=== PATIENT | male | born 1955 | race Caucasian/White ===

== ENCOUNTER 2019-05-18 11:17 | Inpatient (IN) ==
[2019-05-18 12:11] LABS: Hematocrit 30.3 % (42.0-52.0); Hemoglobin 10.9 gm/dL (13.5-18.0); Mean Cell Volume 96.8 fl (78-100); Mean Corpuscular Hemoglobin 34.8 pg (27-31); Mean Platelet Volume 9.4 fl (8-11.3); Neutrophil # 6.4 K/mm3 (1.3-6.0); Neutrophil % 74.2 % (42-75.0); Platelet Count 190 K/mm3 (150-450); Red Blood Count 3.13 M/mm3 (4.7-6.0); Red Cell Distribution Width 13.6 % (11.5-14.0); White Blood Count 8.6 K/mm3 (4.0-10.5)
[2019-05-18 12:50] LABS: Troponin I Less than 0.017 ng/mL (0.00-0.10)
[2019-05-18 12:52] LABS: ALT 31 U/L (19-67); AST 75 U/L (0-48); Albumin * 2.3 gm/dl (3.4-5.0); Alkaline Phosphatase * 121 U/L (50-170); Anion Gap 7.2 mmol/L (6.8-13.8); BNP * 365 pg/mL (5-175); BUN/Creatinine Ratio 10.9 (9.0-21.6); Blood Urea Nitrogen 7 mg/dL (6-23); Ca. Corrected For Albumin 9.4 mg/dL (8.4-10.2); Calcium * 8.4 mg/dL (7.9-10.9); Carbon Dioxide 32.3 mmol/L (24-32.6); Chloride 84 mmol/L (97-106); Glucose * 102 mg/dL (70-110); Potassium 3.5 mmol/L (3.4-4.6); Total Protein 6.5 gm/dL (6.2-8.2)
[2019-05-18 13:04] LABS: Sodium 120 mmol/L (132-142)
[2019-05-18] MEDS ORDERED: NORMAL SALINE 1,000 ML IV ONE (13:31)
--- NOTE | 2019-05-18 13:43 | ERNOTE ---
Medical Problem HPI - Narrative Date of Service: 05/18/19 - General Chief Complaint: General Assessment Time Seen by Provider: 05/18/19 11:43 Source: patient, family, RN notes reviewed Exam Limitations: other - Poor historian - Immun/Allergies/Home Medications Immunizations: IMMUNIZATION HX Immunizations Up to Date No History of Influenza Vaccine No Hx Pneumococcal Vaccination No Allergies/Adverse Reactions: Allergies No Known Allergies Allergy (Verified 05/18/19 11:27) Home Medications: HOME MEDICATIONS Carvedilol [Coreg] 12.5 mg PO BID 05/18/19 [Last Taken Unknown] Furosemide [Lasix] 80 mg PO DAILY PRN 05/18/19 [Last Taken Unknown] Potassium Chloride [Klor-Con M20] 20 meq PO DAILY 05/18/19 [Last Taken Unknown] - History of Present History Narrative: Erik is a 64 year old male brought to the ED from home by ambulance. He was transported in a wheelchair because he could not tolerate lying down. He had somehow gotten himself out of his chair and could not get up. He was on all fours, leaning over his chair when EMS arrived. He attributes this to fluid retention, which has been going on for several months. He reports seeing his PCP approximately a month ago. 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 His sister spoke with nursing staff and asserted that his mother actually has to take care of him. He has a history of alcohol abuse but stopped drinking some time ago. He is a smoker and reports that he currently only smokes 5 or 6 cigarettes a day. He denies any pain other than in the bottoms of his feet. Review of Systems - Review of Systems Constitutional: Present: fatigue, malaise, decreased activity level. Absent: recent illness EYE: Present: no symptoms reported ENT: Absent: nose congestion, sore throat Respiratory: Present: shortness of breath, cough, orthopnea. Absent: wheezing Cardiology: Present: edema. Absent: chest pain, syncope Gastrointestinal/Abdominal: Absent: nausea, vomiting, diarrhea, abdominal pain, eating less, drinking less Genitourinary: Present: decreased urinary output. Absent: dysuria Musculoskeletal: Absent: back pain, joint pain Skin: Absent: lesions, lumps, change in color Neurological: Absent: headache, dizziness/light-headedness Endocrine: Present: no symptoms reported Hematologic/Lymphatic: Absent: easy bruising, easy bleeding Psych: Present: no symptoms reported Medical History (Last Reviewed 05/18/19 @ 13:38 by Viv Arreola NP) CHF (congestive heart failure) HTN (hypertension) Surgical History: Surgical History (Last Reviewed 05/18/19 @ 13:38 by Viv Arreola NP) History of orthopedic surgery Hx of tonsillectomy Social History: (Last Reviewed 05/18/19 @ 13:38 by Viv Arreola NP) Tobacco: Smoking Status: Current every day smoker tobacco type: cigarettes Smoking cigarettes per day: 5 Alcohol: alcohol intake: former Substance Use: substance use type: does not use Physical Exam - Physical Exam General Appearance: Present: alert, no apparent distress, obese Head Exam: Present: normal inspection Eye Exam: PERRL: bilateral, EOMI: bilateral, Scleral icterus: bilateral - mild Neck: Present: normal inspection, nontender, supple Respiratory: Present: no respiratory distress, chest nontender, rhonchi - scattered throughout, other - dyspnea with minimal exertion Cardiovascular/Chest: Present: regular rate, rhythm. Absent: normal peripheral pulses Peripheral Pulses: N=norm/S=strong/W=weak/B=bound/A=absent: Dorsalis-pedis (R): Weak, Dorsalis-pedis (L): Weak Gastrointestinal/Abdominal: Present: nontender, soft, distended - morbidly obese Extremity Exam: Present: normal range of motion, pedal edema, extremity edema - bilateral lower legs and feet. Absent: calf tenderness Neurological Exam: Present: alert, oriented, normal mood/affect, no motor/s ensory deficits Skin Exam: Present: warm/dry, other - mild erythema and scaling to lower legs Progress - Results and Orders Patient's Lab Results:: I have reviewed the patient's lab results. - Vital Signs Patient's Vital Signs:: I have reviewed the patient's vital signs. Vital Signs: Vital Signs 05/18/19 11:17 05/18/19 11:25 05/18/19 12:24 Temperature 35.7 C L Pulse Rate 64 70 64 Respiratory Rate 14 13 14 Blood Pressure 140/58 156/96 H O2 Sat by Pulse Oximetry 100 94 96 05/18/19 13:30 Temperature 36.5 C Pulse Rate 91 Respiratory Rate 12 Blood Pressure 116/48 O2 Sat by Pulse Oximetry 99 - EKG EKG #1 EKG: NSR EKG read: Reviewed by me - X-Ray X-Ray #2 X-Ray: chest Interpretation: Reviewed by me X-ray Comments: Technique: A single portable upright AP view of the chest were obtained. Findings: The cardiac silhouette is enlarged in size. The mediastinum and hilum are with in normal limits. The lung hart are clear. I do not see evidence for an infiltrate, effusion or pulmonary edema. IMPRESSION: 1. ENLARGED CARDIAC SILHOUETTE. 2. NO ACUTE CARDIOPULMONARY PROCESS. Electronically signed by Anthony Brown M.D.. - Progress/Reassessment Chief Complaint: General Assessment Progress:: Unchanged Plan - Plan Plan: Dr. Flores was contacted. The patient will be admitted to Med/Surg on telemetry for correction of his sodium. IV NS as 125 ml/hr was ordered. Departure Clinical Impression: Acute hyponatremia - Departure Disposition: Still a patient Condition: Stable Referrals: Katheryn Bell MD [Primary Care Provider] -
[2019-05-18] MEDS: FUROSEMIDE 10 MG/ML VIAL IV SCH ×2 (16:18→17:14)
[2019-05-18] MEDS ORDERED: FLU VACC QS2019-20(6MOS UP)/PF 60 MCG/0.5 ML SYRINGE IM ONE (17:00)
[2019-05-18] MEDS ORDERED: POTASSIUM BICARBONATE/CIT AC 25 MEQ TABLET.EFF PO ONE (17:36)
[2019-05-18] MEDS: ENOXAPARIN SODIUM 40 MG/0.4 ML SYRG SC SCH (17:47)
--- NOTE | 2019-05-18 17:59 | HP ---
Chief Complaint - Chief Complaint Date of Service: 05/18/19 Time of Service: 14:49 Chief Complaint: Weakness x 5 days History of Present Illness: 64-year-old male with a past medical history of hypertension and congestive heart failure presents with complaints of weakness for the past 5 days. He had a fall today and was unable to get himself up. EMS was called. In the emergency department he was found to have hyponatremia with a sodium of 120, BNP of 365, albumin of 2.3. He was admitted for management of hyponatremia. It is unclear how long the sodium has been low. Medical History (Last Reviewed 05/18/19 @ 14:28 by Marino Solo RN) CHF (congestive heart failure) HTN (hypertension) Surgical History: Surgical History (Last Reviewed 05/18/19 @ 14:28 by Marino Solo RN) History of orthopedic surgery Hx of tonsillectomy Family History: Family History (Last Updated 05/18/19 @ 17:58 by Isha Flores MD) Other Family history non-contributory Social History: (Last Reviewed 05/18/19 @ 13:38 by Viv Arreola NP) Tobacco: Smoking Status: Current every day smoker tobacco type: cigarettes Smoking cigarettes per day: 5 Alcohol: alcohol intake: former Substance Use: substance use type: does not use Review Of Systems (GEN) - Review of Systems Generalized/Overall Review: Present: Weakness. Absent: Chills, Fever Respiratory: Present: Shortness of Breath. Absent: Cough Cardiac: Present: Edema. Absent: Chest Pain Abdominal: Absent: Abdominal Pain Musculoskeletal: Absent: Back Pain Misc: All systems neg except as marked Immunizations: IMMUNIZATION HX Immunizations Up to Date No History of Influenza Vaccine No Hx Pneumococcal Vaccination No Allergies/Adverse Reactions: Allergies Allergy/AdvReac Type Severity Reaction Status Date / Time No Known Allergies Allergy Verified 05/18/19 11:27 Home Medications: HOME MEDICATIONS Carvedilol [Coreg] 12.5 mg PO BID 05/18/19 [Last Taken Unknown] Furosemide [Lasix] 80 mg PO BID 05/18/19 [Last Taken Unknown] Potassium Chloride [Klor-Con M20] 20 meq PO DAILY 05/18/19 [Last Taken Unknown] Exam - Exam Vital Signs: Vital Signs - Last Taken Temp 36.5 C 05/18/19 14:31 Pulse 64 05/18/19 16:18 Resp 24 H 05/18/19 14:31 BP 118/66 05/18/19 16:18 Pulse Ox 95 05/18/19 14:31 Constitutional: Present: Alert, Cooperative, Well developed, Obese ENT Exam: Present: hearing grossly normal, moist mucous membranes Eye Exam: bilateral eye: normal inspection Neck: Present: non-tender, supple. Absent: lymphadenopathy (R), lymphadenopathy (L) Back Exam: Present: normal inspection, no CVA tenderness, no vertebral tenderness. Absent: CVA tenderness (R), CVA tenderness (L) Respiratory: Present: lungs clear, no respiratory distress, no accessory muscle use, No wheezing. Absent: crackles Cardiovascular/Chest: Present: normal peripheral pulses, regular rate, rhythm, no murmur, edema - 2+ pitting, bilateral lower extremities up to the abdomen and low back Peripheral Pulses: dorsalis-pedis (R): 1+, dorsalis-pedis (L): 1+ Abdomen: Present: Normal bowel sounds, nontender, distended, hernia - Periumbilical. Absent: guarding Extremity: Present: lower extremity edema - Plus bilateral pitting Skin Exam: Present: normal color, warm/dry Neurologic: Present: alert, normal mood/affect Appearance: Present: appropriate appearance, appropriate insight Eye contact: Present: cooperative, good eye contact Thoughts: Present: normal thought pattern Diagnostic Studies: Abnormal Lab Results 05/18/19 05/18/19 05/18/19 Range/Units 12:06 12:06 15:55 RBC 3.13 L (4.7-6.0) M/mm3 Hgb 10.9 L (13.5-18.0) gm/dL Hct 30.3 L (42.0-52.0) % MCH 34.8 H (27-31) pg Immature Gran % (Auto) 0.50 H (0.001-0.429) % Immature Gran # (Auto) 0.04 H (0.000-0.0310) K/mm3 Lymphocytes % 12.4 L (20-51) % Monocytes % 11.3 H (0.0-9) % Neutrophils # 6.4 H (1.3-6.0) K/mm3 Lymphocytes # 1.06 L (1.5-3.5) k/mm3 Sodium 120 L 118 L* (132-142) mmol/L Plasma Sodium 120 L (130-142) mmol/L Chloride 84 L (97-106) mmol/L Est GFR (Non-Af Amer) 134 H D (60-130) mL/min Total Bilirubin 2.0 H (0.0-1.1) mg/dL AST 75 H (0-48) U/L B-Natriuretic Peptide 365 H (5-175) pg/mL Albumin 2.3 L (3.4-5.0) gm/dl Laboratory Results WBC 8.6 K/mm3 (4.0-10.5) 05/18/19 12:06 RBC 3.13 M/mm3 (4.7-6.0) L 05/18/19 12:06 Hgb 10.9 gm/dL (13.5-18.0) L 05/18/19 12:06 Hct 30.3 % (42.0-52.0) L 05/18/19 12:06 MCV 96.8 fl (78-100) 05/18/19 12:06 MCH 34.8 pg (27-31) H 05/18/19 12:06 MCHC 36.0 g/dl (32-36) 05/18/19 12:06 RDW 13.6 % (11.5-14.0) 05/18/19 12:06 Plt Count 190 K/mm3 (150-450) 05/18/19 12:06 MPV 9.4 fl (8-11.3) 05/18/19 12:06 Immature Gran % (Auto) 0.50 % (0.001-0.429) H 05/18/19 12:06 Immature Gran # (Auto) 0.04 K/mm3 (0.000-0.0310) H 05/18/19 12:06 Neutrophils % 74.2 % (42-75.0) 05/18/19 12:06 Lymphocytes % 12.4 % (20-51) L 05/18/19 12:06 Monocytes % 11.3 % (0.0-9) H 05/18/19 12:06 Eosinophils % 1.2 % (0.0-3.0) 05/18/19 12:06 Basophils % 0.4 % (0.0-1.0) 05/18/19 12:06 Nucleated RBC % 0.0 k/mm3 (0-1) 05/18/19 12:06 Neutrophils # 6.4 K/mm3 (1.3-6.0) H 05/18/19 12:06 Lymphocytes # 1.06 k/mm3 (1.5-3.5) L 05/18/19 12:06 Monocytes # 1.0 k/mm3 (0.0-1.0) 05/18/19 12:06 Eosinophils # 0.1 k/mm3 (0.0-0.7) 05/18/19 12:06 Absolute Basophils 0.0 k/mm3 (0.0-0.1) 05/18/19 12:06 Sodium 118 mmol/L (132-142) L* 05/18/19 15:55 Plasma Sodium 120 mmol/L (130-142) L 05/18/19 12:06 Potassium 3.5 mmol/L (3.4-4.6) 05/18/19 12:06 Chloride 84 mmol/L (97-106) L 05/18/19 12:06 Carbon Dioxide 32.3 mmol/L (24-32.6) 05/18/19 12:06 Anion Gap 7.2 mmol/L (6.8-13.8) 05/18/19 12:06 BUN 7 mg/dL (6-23) 05/18/19 12:06 Creatinine 0.64 mg/dL (0.4-1.4) 05/18/19 12:06 Est GFR (Non-Af Amer) 134 mL/min (60-130) H D 05/18/19 12:06 BUN/Creatinine Ratio 10.9 (9.0-21.6) 05/18/19 12:06 Random Glucose 102 mg/dL (70-110) 05/18/19 12:06 Calcium 8.4 mg/dL (7.9-10.9) 05/18/19 12:06 Calcium Adj for Albumin 9.4 mg/dL (8.4-10.2) 05/18/19 12:06 Total Bilirubin 2.0 mg/dL (0.0-1.1) H 05/18/19 12:06 AST 75 U/L (0-48) H 05/18/19 12:06 ALT 31 U/L (19-67) 05/18/19 12:06 Alkaline Phosphatase 121 U/L (50-170) 05/18/19 12:06 Troponin I Less than 0.017 ng/mL (0.00-0.10) 05/18/19 12:06 B-Natriuretic Peptide 365 pg/mL (5-175) H 05/18/19 12:06 Total Protein 6.5 gm/dL (6.2-8.2) 05/18/19 12:06 Albumin 2.3 gm/dl (3.4-5.0) L 05/18/19 12:06 Assessment/Plan - Narrative Narrative: 64-year-old male with a past medical history of hypertension and congestive heart failure presents with complaints of weakness for the past 5 days. He had a fall today and was unable to get himself up. EMS was called. In the emergency department he was found to have hyponatremia with a sodium of 120, BNP of 365, albumin of 2.3. He was admitted for management of hyponatremia. It is unclear how long the sodium has been low. Plan #1 I will aggressively diurese him with Lasix 80 mg 3 times a day. #2 monitor sodium every 4-6 hours to avoid overcorrection. Goal is to prevent the sodium from dropping. I would like to increase his sodium by 4 to 6 mEq in a 24-hour time. #3 fluid restrict with 1200 cc every 24 hours #4 strict I's and O's #5 resume home medications for comorbidities #6 replete potassium as needed #7 VTE prophylaxis with Lovenox 40 mg daily #8 obtain serum osmolarity, urine sodium and urine osmolarity - Assessment/Plan (1) Acute hyponatremia Problem: Acute (2) Hypertension Problem: Acute Qualifiers: Hypertension type: essential hypertension Qualified Code(s): I10 - Essential (primary) hypertension (3) Congestive heart failure Problem: Acute Qualifiers: Heart failure chronicity: chronic (4) Morbid obesity with BMI of 45.0-49.9, adult Problem: Acute (5) Volume overload Problem: Acute
[2019-05-18] MEDS: CARVEDILOL 12.5 MG TABLET PO SCH (20:41)
[2019-05-18] MEDS ORDERED: FUROSEMIDE 10 MG/ML VIAL IV ONE (21:00)
[2019-05-18 22:51] LABS: Anion Gap 8.7 mmol/L (6.8-13.8); Carbon Dioxide 33.9 mmol/L (24-32.6); Potassium 3.6 mmol/L (3.4-4.6)
[2019-05-18 23:17] LABS: Albumin * 2.4 gm/dl (3.4-5.0); BUN/Creatinine Ratio 10.8 (9.0-21.6); Bilirubin, Total 2.1 mg/dL (0.0-1.1); Ca. Corrected For Albumin 9.3 mg/dL (8.4-10.2); Calcium * 8.3 mg/dL (7.9-10.9); Total Protein 6.4 gm/dL (6.2-8.2)
[2019-05-19] MEDS: ACETAMINOPHEN 500 MG TABLET PO PRN (01:47)
[2019-05-19 06:52] LABS: Hematocrit 26.8 % (42.0-52.0); Hemoglobin 9.7 gm/dL (13.5-18.0); Mean Cell Volume 96.8 fl (78-100); Mean Corpuscular Hgb Conc 36.2 g/dl (32-36); Mean Platelet Volume 9.7 fl (8-11.3); Neutrophil # 5.9 K/mm3 (1.3-6.0); Neutrophil % 76.6 % (42-75.0); Platelet Count 153 K/mm3 (150-450); Red Blood Count 2.77 M/mm3 (4.7-6.0); Red Cell Distribution Width 13.8 % (11.5-14.0); White Blood Count 7.7 K/mm3 (4.0-10.5)
[2019-05-19 07:06] LABS: Albumin * 2.2 gm/dl (3.4-5.0); Anion Gap 9.3 mmol/L (6.8-13.8); BUN/Creatinine Ratio 11.3 (9.0-21.6); Bilirubin, Total 2.1 mg/dL (0.0-1.1); Ca. Corrected For Albumin 9.1 mg/dL (8.4-10.2); Potassium 3.3 mmol/L (3.4-4.6)
[2019-05-19] MEDS: CARVEDILOL 12.5 MG TABLET PO SCH ×2 (09:21→20:43)
[2019-05-19] MEDS: POTASSIUM CHLORIDE 20 MEQ TABLET.SA PO SCH (09:21)
[2019-05-19] MEDS: FUROSEMIDE 10 MG/ML VIAL IV SCH ×3 (09:33→16:49)
[2019-05-19 12:28] LABS: Albumin * 2.2 gm/dl (3.4-5.0); Anion Gap 10.4 mmol/L (6.8-13.8); BUN/Creatinine Ratio 10.6 (9.0-21.6); Bilirubin, Total 1.9 mg/dL (0.0-1.1); Ca. Corrected For Albumin 9.2 mg/dL (8.4-10.2); Calcium * 8.1 mg/dL (7.9-10.9); Potassium 3.4 mmol/L (3.4-4.6); Total Protein 6.3 gm/dL (6.2-8.2)
--- NOTE | 2019-05-19 12:45 | PN ---
Subjective - Date and Time Seen Date: 05/19/19 Time: 09:28 Subjective Narrative: He complains of shortness of breath. He is urinating frequently. He is tolerating a diet. He complains of pain in his legs which are better with a topical icy hot cream that was applied last night. Objective - Review of Systems Generalized/Overall Review: Denies: Chills, Fever Respiratory: Denies: Shortness of Breath Cardiac: Reports: Edema. Denies: Chest Pain Abdominal: Denies: Abdominal Pain Skin: Reports: Dryness - Both legs Misc: All systems neg except as marked - Vitals Vitals: Last Vital Signs Temp 36.5 C 05/19/19 10:40 Pulse 90 05/19/19 10:40 Resp 20 05/19/19 10:40 BP 147/63 05/19/19 10:40 Pulse Ox 98 05/19/19 10:40 - Abnormal Lab Findings Abnormal Lab Findings: Abnormal Lab Results 05/18/19 05/18/19 05/18/19 Range/Units 12:06 15:55 21:55 RBC (4.7-6.0) M/mm3 Hgb (13.5-18.0) gm/dL Hct (42.0-52.0) % MCH (27-31) pg MCHC (32-36) g/dl Immature Gran % (Auto) (0.001-0.429) % Immature Gran # (Auto) (0.000-0.0310) K/mm3 Neutrophils % (42-75.0) % Lymphocytes % (20-51) % Monocytes % (0.0-9) % Lymphocytes # (1.5-3.5) k/mm3 Sodium 120 L 118 L* 123 L (132-142) mmol/L Plasma Sodium 120 L 123 L (130-142) mmol/L Potassium (3.4-4.6) mmol/L Chloride 84 L 84 L (97-106) mmol/L Carbon Dioxide 33.9 H (24-32.6) mmol/L Est GFR (Non-Af Amer) 134 H D 131 H (60-130) mL/min Total Bilirubin 2.0 H 2.1 H (0.0-1.1) mg/dL AST 75 H 79 H (0-48) U/L B-Natriuretic Peptide 365 H (5-175) pg/mL Total Protein (6.2-8.2) gm/dL Albumin 2.3 L 2.4 L (3.4-5.0) gm/dl 05/19/19 05/19/19 05/19/19 Range/Units 06:44 06:44 12:11 RBC 2.77 L (4.7-6.0) M/mm3 Hgb 9.7 L (13.5-18.0) gm/dL Hct 26.8 L (42.0-52.0) % MCH 35.0 H (27-31) pg MCHC 36.2 H (32-36) g/dl Immature Gran % (Auto) 0.50 H (0.001-0.429) % Immature Gran # (Auto) 0.04 H (0.000-0.0310) K/mm3 Neutrophils % 76.6 H (42-75.0) % Lymphocytes % 9.5 L (20-51) % Monocytes % 11.9 H (0.0-9) % Lymphocytes # 0.73 L (1.5-3.5) k/mm3 Sodium 122 L 123 L (132-142) mmol/L Plasma Sodium 122 L 123 L (130-142) mmol/L Potassium 3.3 L (3.4-4.6) mmol/L Chloride 84 L 85 L (97-106) mmol/L Carbon Dioxide (24-32.6) mmol/L Est GFR (Non-Af Amer) 139 H (60-130) mL/min Total Bilirubin 2.1 H 1.9 H (0.0-1.1) mg/dL AST 69 H 72 H (0-48) U/L B-Natriuretic Peptide (5-175) pg/mL Total Protein 6.0 L (6.2-8.2) gm/dL Albumin 2.2 L 2.2 L (3.4-5.0) gm/dl - Exam Constitutional: Present: Alert, Cooperative, Well developed, Well nourished, No distress, Obese ENT Exam: Present: hearing grossly normal Neck: Present: supple, trachea midline. Absent: lymphadenopathy (R), lymphadenopathy (L) Respiratory: Present: no respiratory distress, no accessory muscle use, decreased breath sounds - Throughout all lung hart. Absent: crackles, rhonchi Cardiovascular/Chest: Present: normal peripheral pulses, regular rate, rhythm, no edema, no murmur Abdomen: Present: Normal bowel sounds, nontender, distended, hernia - Periumbilical Extremity: Present: pedal edema - 3+ bilateral pitting up to the low back and top of the abdomen Skin Exam: Present: warm/dry Neurologic: Present: alert, normal mood/affect Appearance: Present: appropriate appearance, appropriate insight Eye contact: Present: cooperative Thoughts: Present: normal thought pattern, normal mood /affect Assessment/Plan Plan Narrative: 64-year-old male with a past medical history of hypertension and congestive heart failure presents with complaints of weakness for the past 5 days. He had a fall today and was unable to get himself up. EMS was called. In the emergency department he was found to have hyponatremia with a sodium of 120, BNP of 365, albumin of 2.3. He was admitted for management of hyponatremia. It is unclear how long the sodium has been low. He has started to diurese well but has a large fluid burden. I believe his anasarca may be secondary to low albumin. In the past 24 hours he has lost 3 kg of fluid weight. Sodium initially declined from 122 to 118 due to us giving him normal saline. Once the normal saline was stopped and restarted to diurese his sodium went back up to 120 and today it is currently 123. Plan #1 I continue with aggressive diuresis with Lasix 80 mg 3 times a day. #2 monitor sodium every 4-6 hours to avoid overcorrection. Goal is to prevent the sodium from dropping. I would like to increase his sodium by 4 to 6 mEq in a 24-hour time. #3 fluid restrict with 1200 cc every 24 hours #4 strict I's and O's #5 resume home medications for comorbidities #6 replete potassium as needed #7 VTE prophylaxis with Lovenox 40 mg daily #8 obtain serum osmolarity, urine sodium and urine osmolarity - Problems/Diagnosis (1) Acute hyponatremia Problem: Acute (2) Hypertension Problem: Acute Qualifiers: Hypertension type: essential hypertension Qualified Code(s): I10 - Essential (primary) hypertension (3) Congestive heart failure Problem: Acute Qualifiers: Heart failure chronicity: chronic (4) Morbid obesity with BMI of 45.0-49.9, adult Problem: Acute (5) Volume overload Problem: Acute (6) Anasarca Problem: Acute (7) Hypoalbuminemia Problem: Acute
[2019-05-19] MEDS: ENOXAPARIN SODIUM 40 MG/0.4 ML SYRG SC SCH (16:47)
[2019-05-19] MEDS: POTASSIUM BICARBONATE/CIT AC 25 MEQ TABLET.EFF PO SCH (20:42)
[2019-05-20 06:28] LABS: Hematocrit 26.9 % (42.0-52.0); Hemoglobin 9.6 gm/dL (13.5-18.0); Mean Cell Volume 96.8 fl (78-100); Mean Corpuscular Hemoglobin 34.5 pg (27-31); Mean Corpuscular Hgb Conc 35.7 g/dl (32-36); Neutrophil # 4.5 K/mm3 (1.3-6.0); Neutrophil % 67.4 % (42-75.0); Platelet Count 130 K/mm3 (150-450); Red Blood Count 2.78 M/mm3 (4.7-6.0); White Blood Count 6.7 K/mm3 (4.0-10.5)
[2019-05-20 06:39] LABS: Albumin * 2.2 gm/dl (3.4-5.0); Anion Gap 6.6 mmol/L (6.8-13.8); BUN/Creatinine Ratio 10.9 (9.0-21.6); Bilirubin, Total 1.5 mg/dL (0.0-1.1); Ca. Corrected For Albumin 8.9 mg/dL (8.4-10.2); Calcium * 7.8 mg/dL (7.9-10.9); Carbon Dioxide 36.7 mmol/L (24-32.6); Potassium 3.3 mmol/L (3.4-4.6); Total Protein 6.3 gm/dL (6.2-8.2)
[2019-05-20] MEDS: FUROSEMIDE 10 MG/ML VIAL IV SCH ×3 (08:35→16:06)
[2019-05-20] MEDS: POTASSIUM BICARBONATE/CIT AC 25 MEQ TABLET.EFF PO SCH (08:35)
[2019-05-20] MEDS: CARVEDILOL 12.5 MG TABLET PO SCH ×2 (08:36→21:08)
[2019-05-20] MEDS ORDERED: POTASSIUM BICARBONATE/CIT AC 25 MEQ TABLET.EFF PO SCH (09:00)
[2019-05-20] MEDS: ALBUTEROL SULFATE/IPRATROPIUM 3 ML NEBU IH SCH ×3 (09:48→18:28)
[2019-05-20] MEDS: MINERAL OIL/PETROLATUM,WHITE 454 APPL JAR TP SCH ×2 (12:46→21:08)
[2019-05-20] MEDS: NYSTATIN 15 APPL BTL TP SCH ×2 (12:46→21:08)
[2019-05-20] MEDS: ACETAMINOPHEN 500 MG TABLET PO PRN ×2 (16:06→22:54)
[2019-05-20] MEDS: ENOXAPARIN SODIUM 40 MG/0.4 ML SYRG SC SCH (16:07)
[2019-05-20 16:51] LABS: Albumin * 2.2 gm/dl (3.4-5.0); Anion Gap 7.2 mmol/L (6.8-13.8); BUN/Creatinine Ratio 10.8 (9.0-21.6); Bilirubin, Total 1.1 mg/dL (0.0-1.1); Ca. Corrected For Albumin 9.1 mg/dL (8.4-10.2); Carbon Dioxide 35.8 mmol/L (24-32.6); Total Protein 6.3 gm/dL (6.2-8.2)
[2019-05-20] MEDS ORDERED: POT CHLORIDE/POT BICARB/CIT AC 25 MEQ TABLET.EFF PO ONE (17:07)
--- NOTE | 2019-05-20 17:44 | PN ---
Subjective - Date and Time Seen Date: 05/20/19 Time: 08:23 Subjective Narrative: He feels like the bloating in his stomach area has improved. Overall he feels better than when he first came in the hospital. Objective - Review of Systems Generalized/Overall Review: Denies: Fever Respiratory: Reports: Shortness of Breath Cardiac: Reports: Edema. Denies: Chest Pain Abdominal: Denies: Abdominal Pain Misc: All systems neg except as marked - Vitals Vitals: Last Vital Signs Temp 36.9 C 05/20/19 14:54 Pulse 86 05/20/19 16:06 Resp 24 H 05/20/19 14:54 BP 126/52 05/20/19 16:06 Pulse Ox 97 05/20/19 14:54 - Abnormal Lab Findings Abnormal Lab Findings: Abnormal Lab Results 05/18/19 05/19/19 05/20/19 Range/Units 21:55 21:05 06:00 RBC 2.78 L (4.7-6.0) M/mm3 Hgb 9.6 L (13.5-18.0) gm/dL Hct 26.9 L (42.0-52.0) % MCH 34.5 H (27-31) pg Plt Count 130 L (150-450) K/mm3 Lymphocytes % 11.4 L (20-51) % Monocytes % 18.7 H (0.0-9) % Lymphocytes # 0.76 L (1.5-3.5) k/mm3 Monocytes # 1.3 H (0.0-1.0) k/mm3 Sodium 123 L (132-142) mmol/L Plasma Sodium (130-142) mmol/L Potassium (3.4-4.6) mmol/L Chloride (97-106) mmol/L Carbon Dioxide (24-32.6) mmol/L Anion Gap (6.8-13.8) mmol/L Est GFR (Non-Af Amer) (60-130) mL/min Serum Osmolality 249 L mOsm/kg Calcium (7.9-10.9) mg/dL Total Bilirubin (0.0-1.1) mg/dL AST (0-48) U/L Albumin (3.4-5.0) gm/dl 05/20/19 05/20/19 Range/Units 06:15 16:30 RBC (4.7-6.0) M/mm3 Hgb (13.5-18.0) gm/dL Hct (42.0-52.0) % MCH (27-31) pg Plt Count (150-450) K/mm3 Lymphocytes % (20-51) % Monocytes % (0.0-9) % Lymphocytes # (1.5-3.5) k/mm3 Monocytes # (0.0-1.0) k/mm3 Sodium 125 L 126 L (132-142) mmol/L Plasma Sodium 125 L 126 L (130-142) mmol/L Potassium 3.3 L 3.0 L (3.4-4.6) mmol/L Chloride 85 L 86 L (97-106) mmol/L Carbon Dioxide 36.7 H 35.8 H (24-32.6) mmol/L Anion Gap 6.6 L (6.8-13.8) mmol/L Est GFR (Non-Af Amer) 134 H (60-130) mL/min Serum Osmolality mOsm/kg Calcium 7.8 L (7.9-10.9) mg/dL Total Bilirubin 1.5 H (0.0-1.1) mg/dL AST 73 H 76 H (0-48) U/L Albumin 2.2 L 2.2 L (3.4-5.0) gm/dl - Exam Constitutional: Present: Alert, Cooperative, Well developed, Well nourished, No distress ENT Exam: Present: hearing grossly normal Neck: Present: non-tender, trachea midline. Absent: lymphadenopathy (R), lymphadenopathy (L) Respiratory: Present: no accessory muscle use, wheezing - Expiratory wheezing throughout all lung hart Cardiovascular/Chest: Present: normal peripheral pulses, regular rate, rhythm, no murmur, edema - 3+ bilateral pitting edema from feet to abdomen and back Abdomen: Present: Normal bowel sounds, soft, nontender, obese, distended, hernia - Periumbilical hernia Extremity: Present: lower extremity edema - 3+ bilateral pitting edema from feet to abdomen and back Skin Exam: Present: warm/dry, other - Erythematous scaling bilateral lower extremities Neurologic: Present: alert, normal mood/affect Appearance: Present: appropriate appearance, appropriate insight Eye contact: Present: cooperative Thoughts: Present: normal mood /affect Assessment/Plan Plan Narrative: 64-year-old male with a past medical history of hypertension and alcohol abuse presents with complaints of weakness for the past 5 days. He had a fall today and was unable to get himself up. EMS was called. In the emergency department he was found to have hyponatremia with a sodium of 120, BNP of 365, albumin of 2.3. He was admitted for management of hyponatremia. It is unclear how long the sodium has been low. He has started to diurese well but has a large fluid burden. I believe his anasarca may be secondary to low albumin. The low albumin may be from liver cirrhosis due to his history of alcohol abuse. Since admission he has lost about 7 kg of fluid weight. Sodium has come up to 126 today. Plan #1 I well continue with aggressive diuresis with Lasix 80 mg 3 times a day. #2 monitor sodium twice a day. Goal is to prevent the sodium from dropping. I would like to increase his sodium by 4 to 6 mEq in a 24-hour time. #3 fluid restrict increased to 1400 cc every 24 hours because the patient was complaining of increased thirst at night #4 strict I's and O's #5 resume home medications for comorbidities #6 replete potassium as needed, I have increased his potassium supplementation to potassium bicarbonate 50 mEq 3 times a day #7 VTE prophylaxis with Lovenox 40 mg daily - Problems/Diagnosis (1) Acute hyponatremia Problem: Acute (2) Hypertension Problem: Acute Qualifiers: Hypertension type: essential hypertension Qualified Code(s): I10 - Essential (primary) hypertension (3) Congestive heart failure Problem: Acute Qualifiers: Heart failure chronicity: chronic (4) Morbid obesity with BMI of 45.0-49.9, adult Problem: Acute (5) Volume overload Problem: Acute (6) Anasarca Problem: Acute (7) Hypoalbuminemia Problem: Acute
[2019-05-21] MEDS: ALBUTEROL SULFATE/IPRATROPIUM 3 ML NEBU IH SCH ×4 (00:05→18:14)
[2019-05-21 06:07] LABS: Hematocrit 28.7 % (42.0-52.0); Hemoglobin 10.1 gm/dL (13.5-18.0); Mean Cell Volume 98.6 fl (78-100); Mean Corpuscular Hemoglobin 34.7 pg (27-31); Mean Corpuscular Hgb Conc 35.2 g/dl (32-36); Mean Platelet Volume 9.3 fl (8-11.3); Neutrophil # 4.6 K/mm3 (1.3-6.0); Neutrophil % 63.2 % (42-75.0); Platelet Count 131 K/mm3 (150-450); Red Blood Count 2.91 M/mm3 (4.7-6.0); Red Cell Distribution Width 14.4 % (11.5-14.0); White Blood Count 7.2 K/mm3 (4.0-10.5)
[2019-05-21 06:26] LABS: Albumin * 2.2 gm/dl (3.4-5.0); Anion Gap 6.1 mmol/L (6.8-13.8); BUN/Creatinine Ratio 10.9 (9.0-21.6); Bilirubin, Total 1.3 mg/dL (0.0-1.1); Ca. Corrected For Albumin 9.2 mg/dL (8.4-10.2); Calcium * 8.1 mg/dL (7.9-10.9); Carbon Dioxide 35.4 mmol/L (24-32.6); Potassium 3.5 mmol/L (3.4-4.6); Total Protein 6.4 gm/dL (6.2-8.2)
[2019-05-21] MEDS: POTASSIUM BICARBONATE/CIT AC 25 MEQ TABLET.EFF PO SCH ×3 (09:01→16:20)
[2019-05-21] MEDS: MINERAL OIL/PETROLATUM,WHITE 454 APPL JAR TP SCH ×2 (09:02→21:13)
[2019-05-21] MEDS: CARVEDILOL 12.5 MG TABLET PO SCH ×2 (09:02→21:13)
[2019-05-21] MEDS: FUROSEMIDE 10 MG/ML VIAL IV SCH ×3 (09:02→16:19)
[2019-05-21] MEDS: NYSTATIN 15 APPL BTL TP SCH ×2 (09:03→21:13)
[2019-05-21] MEDS ORDERED: FOLIC ACID 1 MG TABLET PO ONE (10:18)
[2019-05-21] MEDS ORDERED: chlordiazePOXIDE HCL 25 MG CAPSULE PO PRN (10:20)
--- NOTE | 2019-05-21 10:26 | PN ---
Subjective - Date and Time Seen Date: 05/21/19 Time: 10:25 Subjective Narrative: 64-year-old male admitted for hyponatremia, anasarca, fluid overload, generalized weakness, CHF, and occasional shortness of breath was evaluated at bedside during morning rounds and was found to be afebrile and in no acute distress. Patient is in good spirits and says he feels much better since he arrived to the hospital, there is less fluid load on his body so ambulation has become easier for him. Although he still has shortness of breath with exertion. Patient has been treated with breathing treatments which helps with his wheezing and chest congestion. Auscultation of the lungs this morning demonstrated expiratory wheezes in several lung hart however there were no crackles. Patient continues on aggressive diuresis and his urine output is adequate, the anasarca has improved since the initiation of his treatment. Patient's only complaint during today's visit was pain in the soles of his feet. Physical evaluation of the feet demonstrated very scaly dry skin with cracks in between his toes and accompanying erythema. Patient was also tender to touch. It was explained to him that the pain in his lower extremities look most likely due to the swelling but if it got worse he should alert nursing staff and he will be administered pain medications. I am expecting improvement of the symptom as the swelling goes down. For now the patient maintained stable vitals, his liver enzymes have decreased, however his hyponatremia persists and has slightly worsened from yesterday. Given the patient's marked anasarca/fluid overload IV fluids are contraindicated at this time, however we will keep him on fluid restrictions in order to treat his hyponatremia. I have increase his fluid restriction back to 1200 cc/day given the patient's worsening hyponatrem ia. Potassium is normal on this morning's labs, the resolution of the hypokalemia is most likely due to the potassium replacements that the patient is receiving. We will follow-up labs in the morning. Objective Objective Narrative: I feel much better than yesterday, I only have pain in the soles of both feet. Now I have shortness of breath only on ambulation. - Review of Systems Generalized/Overall Review: Reports: Fatigue EENTM: Reports: No Symptoms Reported Respiratory: Reports: Shortness of Breath, Wheezing Cardiac: Reports: Edema Abdominal: Reports: No Symptoms Reported Genitourinary Symptoms: Reports: No Symptoms Reported Musculoskeletal Complaints: Reports: Other - Pain in soles of feet Neurological: Reports: No Symptoms Reported Skin: Reports: Dryness, Change in Color, Other - Marked swelling in lower extremities with erythema and desquamation of the skin. Endocrine: Reports: No Symptoms Reported - Vitals Vitals: Last Vital Signs Temp 36.3 C 05/21/19 08:00 Pulse 63 05/21/19 09:02 Resp 20 05/21/19 08:00 BP 120/54 05/21/19 09:02 Pulse Ox 93 05/21/19 08:00 - Abnormal Lab Findings Abnormal Lab Findings: Abnormal Lab Results 05/18/19 05/20/19 05/21/19 Range/Units 21:55 16:30 06:00 RBC 2.91 L (4.7-6.0) M/mm3 Hgb 10.1 L (13.5-18.0) gm/dL Hct 28.7 L (42.0-52.0) % MCH 34.7 H (27-31) pg RDW 14.4 H (11.5-14.0) % Plt Count 131 L (150-450) K/mm3 Lymphocytes % 17.6 L (20-51) % Monocytes % 15.5 H (0.0-9) % Lymphocytes # 1.27 L (1.5-3.5) k/mm3 Monocytes # 1.1 H (0.0-1.0) k/mm3 Sodium 126 L (132-142) mmol/L Plasma Sodium 126 L (130-142) mmol/L Potassium 3.0 L (3.4-4.6) mmol/L Chloride 86 L (97-106) mmol/L Carbon Dioxide 35.8 H (24-32.6) mmol/L Anion Gap (6.8-13.8) mmol/L Est GFR (Non-Af Amer) (60-130) mL/min Serum Osmolality 249 L mOsm/kg Total Bilirubin (0.0-1.1) mg/dL AST 76 H (0-48) U/L Albumin 2.2 L (3.4-5.0) gm/dl 05/21/19 Range/Units 06:00 RBC (4.7-6.0) M/mm3 Hgb (13.5-18.0) gm/dL Hct (42.0-52.0) % MCH (27-31) pg RDW (11.5-14.0) % Plt Count (150-450) K/mm3 Lymphocytes % (20-51) % Monocytes % (0.0-9) % Lymphocytes # (1.5-3.5) k/mm3 Monocytes # (0.0-1.0) k/mm3 Sodium 124 L (132-142) mmol/L Plasma Sodium 124 L (130-142) mmol/L Potassium (3.4-4.6) mmol/L Chloride 86 L (97-106) mmol/L Carbon Dioxide 35.4 H (24-32.6) mmol/L Anion Gap 6.1 L (6.8-13.8) mmol/L Est GFR (Non-Af Amer) 134 H (60-130) mL/min Serum Osmolality mOsm/kg Total Bilirubin 1.3 H (0.0-1.1) mg/dL AST 82 H (0-48) U/L Albumin 2.2 L (3.4-5.0) gm/dl - Exam Constitutional: Present: Alert, Oriented x3, Cooperative, Well developed, No distress, Elderly, Morbidly obese ENT Exam: Present: normal ENT inspection, hearing grossly normal, pharynx normal, TMs normal Neck: Present: non-tender, full range of motion, supple, normal inspection, trachea midline Breasts: Present: Exam deferred, Nontender Respiratory: Present: chest non-tender, normal breath sounds, no respiratory distress, no accessory muscle use, wheezing - Scattered expiratory wheezing bilaterally. Cardiovascular/Chest: Present: regular rate, rhythm, no chest tenderness, no gallop - 3+ Bilateral pedal edema, no JVD, no murmur, no rub, edema Abdomen: Present: Normal bowel sounds, soft, nontender, nondistended, no rebound tenderness, obese, other - Non-tension ascites, distended /Rectal: Present: Exam deferred Extremity: Present: normal range of motion, pedal edema - 3+ bilateral pedal edema, swelling, other - Dry scaly erythematous skin of lower extremities. There are cracks in between toes but did not appear infected. 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 We will also maximize the patient's fluid restriction given his worsening hypo-natremia this morning on labs. Patient complains of thirst which we will manage with ice chips and oral swabs. At the moment IV fluids are restricted due to marked anasarca, therefore it was explained to him that he will have to tolerate the thirst for the moment. Follow-up labs have been ordered for tomorrow morning to reevaluate liver enzymes and bilirubin levels which have improved and electrolytes. Alcohol withdrawal protocol and as needed anticonvulsants in case of seizures have been ordered given the patient's long history of alcohol abuse and recent abstinence from alcohol. - Problems/Diagnosis (1) Acute hyponatremia Problem: Acute (2) Anasarca Problem: Acute (3) CHF (congestive heart failure) Problem: Acute (4) Hypoalbuminemia Problem: Acute (5) Morbid obesity with BMI of 45.0-49.9, adult Problem: Acute (6) Volume overload Problem: Acute (7) Liver function failure Problem: Acute
[2019-05-21] MEDS: THIAMINE HCL 100 MG/ML VIAL IM SCH (11:39)
[2019-05-21] MEDS: ENOXAPARIN SODIUM 40 MG/0.4 ML SYRG SC SCH (16:19)
[2019-05-22] MEDS: ALBUTEROL SULFATE/IPRATROPIUM 3 ML NEBU IH SCH ×4 (00:06→18:05)
[2019-05-22 06:58] LABS: Hematocrit 28.4 % (42.0-52.0); Mean Cell Volume 99.6 fl (78-100); Mean Corpuscular Hemoglobin 35.1 pg (27-31); Mean Corpuscular Hgb Conc 35.2 g/dl (32-36); Mean Platelet Volume 8.9 fl (8-11.3); Neutrophil # 4.8 K/mm3 (1.3-6.0); Platelet Count 122 K/mm3 (150-450); Red Blood Count 2.85 M/mm3 (4.7-6.0); Red Cell Distribution Width 14.6 % (11.5-14.0); White Blood Count 8.2 K/mm3 (4.0-10.5)
[2019-05-22 07:12] LABS: Albumin * 2.3 gm/dl (3.4-5.0); Anion Gap 4.2 mmol/L (6.8-13.8); BUN/Creatinine Ratio 9.9 (9.0-21.6); Bilirubin, Total 1.5 mg/dL (0.0-1.1); Ca. Corrected For Albumin 9.2 mg/dL (8.4-10.2); Calcium * 8.2 mg/dL (7.9-10.9); Carbon Dioxide 38.9 mmol/L (24-32.6); Potassium 3.1 mmol/L (3.4-4.6); Total Protein 6.5 gm/dL (6.2-8.2)
[2019-05-22] MEDS: MINERAL OIL/PETROLATUM,WHITE 454 APPL JAR TP SCH ×2 (09:07→20:47)
[2019-05-22] MEDS: POTASSIUM BICARBONATE/CIT AC 25 MEQ TABLET.EFF PO SCH (09:07)
[2019-05-22] MEDS: THIAMINE HCL 100 MG/ML VIAL IM SCH (09:07)
[2019-05-22] MEDS: NYSTATIN 15 APPL BTL TP SCH ×2 (09:07→20:48)
[2019-05-22] MEDS: FUROSEMIDE 10 MG/ML VIAL IV SCH ×3 (09:08→16:05)
[2019-05-22] MEDS: CARVEDILOL 12.5 MG TABLET PO SCH ×2 (09:08→20:48)
[2019-05-22] MEDS ORDERED: POTASSIUM CHLORIDE 20 MEQ TABLET.SA PO ONE (11:21)
--- NOTE | 2019-05-22 11:47 | PN ---
Subjective - Date and Time Seen Date: 05/22/19 Time: 11:30 Subjective Narrative: I feel better but I still get some shortness of breath on exertion and both of my feet still hurt. Objective Objective Narrative: 64-year-old male admitted for anasarca, fluid overload, hyponatremia, and acute liver failure was evaluated at bedside was found to be afebrile and in no acute distress. 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 He still has occasional shortness of breath especially with exertion and still has excessive fluid on board. We will continue diuresing him. Patient also complained of pain and both feet, examination of his feet reveals significant edema although improved from admission as well as erythema and tenderness. This is most likely related to his chronic pedal edema due to his fluid overload, it would not be at all surprising that he also has neuropathy in the lower extremities. Therefore as a precaution I am adding gabapentin to his treatment for possible neuropathy. This morning's labs demonstrate improvement in his liver enzymes and of his hyponatremia after he was restarted on a 1200 cc a day fluid restriction diet. Patient was however found to have recurrence of hypokalemia which is very likely due to the aggressive diuresis he is being treated with to treat his fluid overload. Additional potassium replacement was ordered and follow-up labs were ordered for tomorrow morning. - Review of Systems Generalized/Overall Review: Reports: No Symptoms Reported EENTM: Reports: No Symptoms Reported Respiratory: Reports: Cough Cardiac: Reports: Edema Abdominal: Reports: Other - Nonintentional ascites Genitourinary Symptoms: Reports: No Symptoms Reported Musculoskeletal Complaints: Reports: No Symptoms Reported, Back Pain, Other - Pain in both feet Neurological: Reports: No Symptoms Reported Skin: Reports: No Symptoms Reported Endocrine: Reports: No Symptoms Reported - Vitals Vitals: Last Vital Signs Temp 37.6 C 05/22/19 10:24 Pulse 83 05/22/19 10:24 Resp 20 05/22/19 10:24 BP 110/64 05/22/19 10:24 Pulse Ox 95 05/22/19 10:24 - Abnormal Lab Findings Abnormal Lab Findings: Abnormal Lab Results 05/22/19 05/22/19 Range/Units 06:50 06:50 RBC 2.85 L (4.7-6.0) M/mm3 Hgb 10.0 L (13.5-18.0) gm/dL Hct 28.4 L (42.0-52.0) % MCH 35.1 H (27-31) pg RDW 14.6 H (11.5-14.0) % Plt Count 122 L (150-450) K/mm3 Monocytes % 16.5 H (0.0-9) % Eosinophils % 4.2 H (0.0-3.0) % Monocytes # 1.4 H (0.0-1.0) k/mm3 Sodium 127 L (132-142) mmol/L Plasma Sodium 127 L (130-142) mmol/L Potassium 3.1 L (3.4-4.6) mmol/L Chloride 87 L (97-106) mmol/L Carbon Dioxide 38.9 H (24-32.6) mmol/L Anion Gap 4.2 L (6.8-13.8) mmol/L Total Bilirubin 1.5 H (0.0-1.1) mg/dL AST 73 H (0-48) U/L Albumin 2.3 L (3.4-5.0) gm/dl - Exam Constitutional: Present: Alert, Oriented x3, Cooperative, Well developed, No distress, Elderly, Morbidly obese ENT Exam: Present: normal ENT inspection, hearing grossly normal, pharynx normal, TMs normal Neck: Present: non-tender, full range of motion, supple, normal inspection, trachea midline Breasts: Present: Exam deferred Respiratory: Present: chest non-tender, no respiratory distress, no accessory muscle use, wheezing - Scattered expiratory wheezes Cardiovascular/Chest: Present: normal peripheral pulses, regular rate, rhythm, no chest tenderness, no gallop, no JVD, no murmur, no rub, edema Abdomen: Present: Normal bowel sounds, soft, nontender, nondistended, no rebound tenderness, no hepatospenomegaly, no masses, obese, other - Non-tension ascites /Rectal: Present: Exam deferred Extremity: Present: normal range of motion, no calf tenderness, pelvis stable, swelling, other - Bilateral pedal edema with erythema and tender to touch Skin Exam: Present: warm/dry, no cyanosis, other - Erythema lower extremity Lymphatic: Present: no adenopathy Neurologic: Present: 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 Therefore potassium replacement was switched to potassium chloride to avoid further increase of his bicarb levels. He was also administered an extra dose of potassium replacement and gabapentin was added to his treatment for neuropathy in his feet. Hyponatremia is improving since the change in his fluid restriction diet, so we will continue with this diet. Follow-up labs ordered for tomorrow morning for reevaluation of his electrolytes particularly his potassium and sodium levels. - Problems/Diagnosis (1) Acute hyponatremia Problem: Acute (2) Anasarca Problem: Acute (3) CHF (congestive heart failure) Problem: Acute (4) Hypoalbuminemia Problem: Acute (5) Morbid obesity with BMI of 45.0-49.9, adult Problem: Acute (6) Volume overload Problem: Acute (7) Liver function failure Problem: Acute (8) Hypokalemia Problem: Acute
[2019-05-22] MEDS: GABAPENTIN 300 MG CAPSULE PO SCH ×2 (12:41→20:48)
[2019-05-22] MEDS: ENOXAPARIN SODIUM 40 MG/0.4 ML SYRG SC SCH (16:05)
[2019-05-22] MEDS: POTASSIUM CHLORIDE 20 MEQ TABLET.SA PO SCH (16:05)
[2019-05-23] MEDS: ALBUTEROL SULFATE/IPRATROPIUM 3 ML NEBU IH SCH ×5 (00:05→23:21)
[2019-05-23 06:57] LABS: Albumin * 2.4 gm/dl (3.4-5.0); Anion Gap 6.5 mmol/L (6.8-13.8); BUN/Creatinine Ratio 11.4 (9.0-21.6); Bilirubin, Total 2.1 mg/dL (0.0-1.1); Ca. Corrected For Albumin 9.4 mg/dL (8.4-10.2); Calcium * 8.4 mg/dL (7.9-10.9); Carbon Dioxide 36.8 mmol/L (24-32.6); Potassium 3.3 mmol/L (3.4-4.6); Total Protein 6.8 gm/dL (6.2-8.2)
[2019-05-23] MEDS: CARVEDILOL 12.5 MG TABLET PO SCH ×2 (08:47→20:28)
[2019-05-23] MEDS: MINERAL OIL/PETROLATUM,WHITE 454 APPL JAR TP SCH ×2 (08:47→20:27)
[2019-05-23] MEDS: FUROSEMIDE 10 MG/ML VIAL IV SCH ×3 (08:48→16:46)
[2019-05-23] MEDS: POTASSIUM CHLORIDE 20 MEQ TABLET.SA PO SCH ×2 (08:48→16:46)
[2019-05-23] MEDS: GABAPENTIN 300 MG CAPSULE PO SCH ×2 (08:49→20:28)
[2019-05-23] MEDS: THIAMINE HCL 100 MG/ML VIAL IM SCH (08:49)
[2019-05-23] MEDS: NYSTATIN 15 APPL BTL TP SCH ×2 (10:11→20:27)
[2019-05-23] MEDS: ACETAMINOPHEN 500 MG TABLET PO PRN (11:55)
--- NOTE | 2019-05-23 13:27 | PN ---
Subjective - Date and Time Seen Date: 05/23/19 Time: 11:12 Subjective Narrative: He states the swelling in his stomach has improved. He complains of pain in the bottoms of both feet when he walks with a walker. He states it feels like a [id number], shooting pain. He is not sure if the gabapentin is helping. Objective - Review of Systems Generalized/Overall Review: Reports: Chills. Denies: Fever Respiratory: Reports: Shortness of Breath Cardiac: Reports: Edema. Denies: Chest Pain Abdominal: Denies: Abdominal Pain Genitourinary Symptoms: Reports: Frequency Misc: All systems neg except as marked - Vitals Vitals: Last Vital Signs Temp 37.1 C 05/23/19 10:43 Pulse 80 05/23/19 11:59 Resp 20 05/23/19 10:43 BP 108/46 05/23/19 11:59 Pulse Ox 92 L 05/23/19 10:43 - Abnormal Lab Findings Abnormal Lab Findings: Abnormal Lab Results 05/23/19 Range/Units 06:15 Sodium 127 L (132-142) mmol/L Plasma Sodium 127 L (130-142) mmol/L Potassium 3.3 L (3.4-4.6) mmol/L Chloride 87 L (97-106) mmol/L Carbon Dioxide 36.8 H (24-32.6) mmol/L Anion Gap 6.5 L (6.8-13.8) mmol/L Total Bilirubin 2.1 H (0.0-1.1) mg/dL AST 73 H (0-48) U/L Albumin 2.4 L (3.4-5.0) gm/dl - Exam Constitutional: Present: Alert, Cooperative, Well developed, Well nourished, No distress ENT Exam: Present: hearing grossly normal Respiratory: Present: no respiratory distress, no accessory muscle use, rhonchi - With expiration, bilateral throughout all lung hart, wheezing - With expiration, bilateral throughout all lung hart Cardiovascular/Chest: Present: regular rate, rhythm Abdomen: Present: Normal bowel sounds, nontender, distended - But softening, hernia - Periumbilical Extremity: Present: leg pain, pedal edema - 2-3+ pitting bilaterally from feet up to the abdomen and low back. Skin Exam: Present: warm/dry Neurologic: Present: alert, normal mood/affect Appearance: Present: appropriate appearance Eye contact: Present: cooperative Thoughts: Present: normal thought pattern, normal mood /affect Assessment/Plan Plan Narrative: 64-year-old male with a past medical history of hypertension and alcohol abuse presents with complaints of weakness for the past 5 days. He had a fall today a nd was unable to get himself up. EMS was called. In the emergency department he was found to have hyponatremia with a sodium of 120, BNP of 365, albumin of 2.3. He was admitted for management of hyponatremia. It is unclear how long the sodium has been low. He continues to diurese well but has a large fluid burden. I believe his anasarca may be secondary to low albumin. The low albumin may potentially be from liver cirrhosis due to his history of alcohol abuse. Since admission he has lost about 15 kg of fluid weight. Sodium has come up to 127 today. Plan #1 I will continue with aggressive diuresis with Lasix 80 mg 3 times a day. #2 monitor sodium twice a day. Goal is to prevent the sodium from dropping. I would like to increase his sodium by 4 to 6 mEq in a 24-hour time. #3 fluid restrict is back to 1200 cc every 24 hours because his sodium had was dropping again over the weekend #4 strict I's and O's #5 resume home medications for comorbidities #6 replete potassium as needed, his bicarbonate was increasing over the weekend so he is not on potassium chloride. I will increase the dose to 60 mEq twice a day. #7 VTE prophylaxis with Lovenox 40 mg daily #8 he continues to complain of pain in his legs and feet. I will check a magnesium level today. # obtain a chest x-ray today because he continues to have wheezing and coarse breath sounds on expiration - Problems/Diagnosis (1) Acute hyponatremia Problem: Acute (2) Hypertension Problem: Acute Qualifiers: Hypertension type: essential hypertension Qualified Code(s): I10 - Essential (primary) hypertension (3) Morbid obesity with BMI of 45.0-49.9, adult Problem: Acute (4) Volume overload Problem: Acute (5) Anasarca Problem: Acute (6) Hypoalbuminemia Problem: Acute (7) Bilateral leg and foot pain Problem: Acute
[2019-05-23] MEDS: ENOXAPARIN SODIUM 40 MG/0.4 ML SYRG SC SCH (16:45)
[2019-05-24] MEDS: ALBUTEROL SULFATE/IPRATROPIUM 3 ML NEBU IH SCH ×5 (01:31→18:26)
[2019-05-24 06:38] LABS: Hematocrit 27.4 % (42.0-52.0); Hemoglobin 9.9 gm/dL (13.5-18.0); Mean Cell Volume 98.6 fl (78-100); Mean Corpuscular Hemoglobin 35.6 pg (27-31); Mean Corpuscular Hgb Conc 36.1 g/dl (32-36); Mean Platelet Volume 9.6 fl (8-11.3); Platelet Count 138 K/mm3 (150-450); Red Blood Count 2.78 M/mm3 (4.7-6.0); White Blood Count 22.1 K/mm3 (4.0-10.5)
[2019-05-24 06:42] LABS: Albumin * 2.1 gm/dl (3.4-5.0); Anion Gap 8.1 mmol/L (6.8-13.8); BUN/Creatinine Ratio 14.5 (9.0-21.6); Bilirubin, Total 2.2 mg/dL (0.0-1.1); Ca. Corrected For Albumin 9.5 mg/dL (8.4-10.2); Calcium * 8.3 mg/dL (7.9-10.9); Carbon Dioxide 34.1 mmol/L (24-32.6); Potassium 3.2 mmol/L (3.4-4.6); Total Cells Counted 100; Total Protein 6.3 gm/dL (6.2-8.2)
[2019-05-24 06:55] LABS: Lymphocyte 7 % (20-51); Monocyte 6 % (0-9); Neutrophil 87 % (42-75); Neutrophil # 19.2 K/mm3 (1.3-6.0)
[2019-05-24 06:56] LABS: Platelet Estimate Normal (NORMAL); RBC Morphology Normal (NORMAL)
[2019-05-24] MEDS ORDERED: DOXYCYCLINE MONOHYDRATE 25 MG/5 ML PO SCH (09:15)
[2019-05-24] MEDS ORDERED: AMOXICILLIN TRIHYDRATE 875 MG TABLET PO SCH (09:15)
[2019-05-24] MEDS ORDERED: DOXYCYCLINE HYCLATE 100 MG TABLET PO SCH (09:30)
[2019-05-24 09:53] LABS: Urine Bilirubin Negative (NEGATIVE); Urine Blood Negative /ul (NEGATIVE); Urine Ketone Negative (NEGATIVE); Urine Nitrite Negative (NEGATIVE); Urine Protein Negative (NEGATIVE); Urine Urobilinogen Normal (NORMAL); Urine pH 7.5 pH (5.0-7.0)
[2019-05-24 10:02] LABS: Urine Appearance Slightly Cloudy (CLEAR); Urine Bacteria None Seen; Urine Color Yellow; Urine RBC None Seen /hpf (0-5); Urine WBC 0-5 /hpf (0-5)
[2019-05-24] MEDS: NYSTATIN 15 APPL BTL TP SCH ×2 (10:14→22:27)
[2019-05-24] MEDS: GABAPENTIN 300 MG CAPSULE PO SCH ×2 (10:14→22:27)
[2019-05-24] MEDS: MINERAL OIL/PETROLATUM,WHITE 454 APPL JAR TP SCH ×2 (10:14→22:27)
[2019-05-24] MEDS: CARVEDILOL 12.5 MG TABLET PO SCH ×2 (10:15→22:27)
[2019-05-24] MEDS: POTASSIUM CHLORIDE 20 MEQ TABLET.SA PO SCH ×3 (10:15→22:27)
[2019-05-24] MEDS: FUROSEMIDE 10 MG/ML VIAL IV SCH ×5 (10:16→19:12)
[2019-05-24] MEDS: THIAMINE HCL 100 MG/ML VIAL IM SCH (10:16)
[2019-05-24] MEDS: CEFEPIME HCL 2 GM in DEXTROSE 5 % IN WATER 100 ML IV SCH ×4 (14:30→22:26)
--- NOTE | 2019-05-24 14:40 | PN ---
Subjective - Date and Time Seen Date: 05/24/19 Time: 08:52 Subjective Narrative: Patient states he does not feel well. He complains of chills. He states the pain in his lower extremities is a little better. Objective - Review of Systems Generalized/Overall Review: Reports: Weakness, Chills Respiratory: Reports: Cough, Shortness of Breath Cardiac: Denies: Chest Pain Abdominal: Denies: Abdominal Pain Misc: All systems neg except as marked - Vitals Vitals: Last Vital Signs Temp 36.9 C 05/24/19 14:15 Pulse 87 05/24/19 14:15 Resp 20 05/24/19 14:15 BP 100/54 05/24/19 14:20 Pulse Ox 91 L 05/24/19 14:15 - Abnormal Lab Findings Abnormal Lab Findings: Abnormal Lab Results 05/24/19 05/24/19 05/24/19 Range/Units 06:24 06:24 13:05 WBC 22.1 H D (4.0-10.5) K/mm3 RBC 2.78 L (4.7-6.0) M/mm3 Hgb 9.9 L (13.5-18.0) gm/dL Hct 27.4 L (42.0-52.0) % MCH 35.6 H (27-31) pg MCHC 36.1 H (32-36) g/dl RDW 15.0 H (11.5-14.0) % Plt Count 138 L (150-450) K/mm3 Neutrophils % (Manual) 87 H (42-75) % Lymphocytes % (Manual) 7 L (20-51) % Neutrophils # (Manual) 19.2 H (1.3-6.0) K/mm3 Monocytes # (Manual) 1.3 H (0.0-1.0) k/mm3 pO2 63.0 L (83.0-108.0) mmHg HCO3 30.8 H (21.0-28.0) mmol/L Total CO2 32.0 H (19.0-24.0) mmol/L Base Excess 7.3 H (-2.0-3.0) mmol/L ABG pH 7.52 H (7.35-7.45) Sodium 128 L (132-142) mmol/L Plasma Sodium 128 L (130-142) mmol/L Potassium 3.2 L (3.4-4.6) mmol/L Chloride 89 L (97-106) mmol/L Carbon Dioxide 34.1 H (24-32.6) mmol/L Total Bilirubin 2.2 H (0.0-1.1) mg/dL AST 67 H (0-48) U/L Albumin 2.1 L (3.4-5.0) gm/dl - Exam Constitutional: Present: Alert, Cooperative, Well developed, Well nourished, No distress, Morbidly obese ENT Exam: Present: hearing grossly normal Neck: Present: non-tender, supple. Absent: lymphadenopathy (R), lymphadenopathy (L) Respiratory: Present: decreased breath sounds, wheezing - Mild on expiration throughout all lung hart Cardiovascular/Chest: Present: normal peripheral pulses, regular rate, rhythm, no murmur, edema Abdomen: Present: Normal bowel sounds, soft, distended, hernia - Periumbilical Extremity: Present: leg pain - 2+ bilateral pitting edema from the feet to the lower abdomen and low back Skin Exam: Present: warm/dry - Erythematous discoloration below the knees, nontender to palpation Neurologic: Present: alert, normal mood/affect Appearance: Present: appropriate appearance, appropriate insight Eye contact: Present: cooperative Thoughts: Present: normal thought pattern, normal mood /affect Assessment/Plan Plan Narrative: 64-year-old male with a past medical history of hypertension and alcohol abuse presents with complaints of weakness for the past 5 days. He had a fall today and was unable to get himself up. EMS was called. In the emergency department he was found to have hyponatremia with a sodium of 120, BNP of 365, albumin of 2.3. He was admitted for management of hyponatremia. It is unclear how long the sodium has been low. He continues to diurese well but has a large fluid burden. I believe his anasarca may be secondary to low albumin. The low albumin may potentially be from liver cirrhosis due to his history of alcohol abuse. Since admission he has lost about 15 kg of fluid weight. Sodium has come up to 128 today. Patient was not feeling well, complaining of chills, developed leukocytosis of 22,000 and became hypoxic requiring 2 L of oxygen via nasal cannula. I repeated a chest x-ray today and it showed a right midlung pneumonia. His lower extremities also have increased erythema bilateral that is warm to touch. I had started him on doxycycline and amoxicillin for the cellulitis. However after his chest x-ray came back positive for pneumonia I am starting him on cefepime 2 g every 8 hours and vancomycin 2 g every 12 hours for hospital-acquired pneumonia. He cefepime and vancomycin should be sufficient to treat the cellulitis as wel so I will stop the amoxicillin and doxycycline l. Plan #1 I will continue with aggressive diuresis with Lasix 80 mg 3 times a day. #2 monitor sodium once daily. #3 fluid restrict is back to 1200 cc every 24 hours because his sodium had was dropping again over the weekend #4 strict I's and O's #5 resume home medications for comorbidities #6 replete potassium as needed, his bicarbonate was increasing over the weekend so he is not on potassium chloride. I will increase the dose to 140 mEq daily. #7 VTE prophylaxis with Lovenox 40 mg daily #8 He states his leg pain has improved. Magnesium level was normal yesterday. #9 start vancomycin 2 g every 12 hours and cefepime 2 g every 8 hours for treatment of right mid lung pneumonia, day 1. - Problems/Diagnosis (1) Acute hyponatremia Problem: Acute (2) Hypertension Problem: Acute Qualifiers: Hypertension type: essential hypertension Qualified Code(s): I10 - Essential (primary) hypertension (3) Morbid obesity with BMI of 45.0-49.9, adult Problem: Acute (4) Volume overload Problem: Acute (5) Anasarca Problem: Acute (6) Hypoalbuminemia Problem: Acute (7) Bilateral leg and foot pain Problem: Acute (8) HAP (hospital-acquired pneumonia) Problem: Acute (9) Hypoxia Problem: Acute (10) Hypokalemia Problem: Acute
[2019-05-24] MEDS: VANCOMYCIN HCL 2 GM in DEXTROSE 5 % IN WATER 500 ML IV SCH ×2 (15:06)
[2019-05-24] MEDS: ENOXAPARIN SODIUM 40 MG/0.4 ML SYRG SC SCH (16:31)
[2019-05-24 17:44] LABS: Anion Gap 7.7 mmol/L (6.8-13.8); BUN/Creatinine Ratio 14.5 (9.0-21.6); Bilirubin, Total 2.3 mg/dL (0.0-1.1); Ca. Corrected For Albumin 9.5 mg/dL (8.4-10.2); Calcium * 8.2 mg/dL (7.9-10.9); Carbon Dioxide 34.6 mmol/L (24-32.6); Potassium 3.3 mmol/L (3.4-4.6); Total Protein 6.1 gm/dL (6.2-8.2)
[2019-05-24] MEDS: SACCHAROMYCES BOULARDII 250 MG CAPSULE PO SCH (22:27)
[2019-05-25] MEDS: ALBUTEROL SULFATE/IPRATROPIUM 3 ML NEBU IH SCH ×4 (00:13→18:01)
[2019-05-25] MEDS: VANCOMYCIN HCL 2 GM in DEXTROSE 5 % IN WATER 500 ML IV SCH ×4 (03:45→15:10)
[2019-05-25 06:43] LABS: Albumin * 1.9 gm/dl (3.4-5.0); Anion Gap 4.2 mmol/L (6.8-13.8); Bilirubin, Total 1.7 mg/dL (0.0-1.1); Ca. Corrected For Albumin 9.5 mg/dL (8.4-10.2); Calcium * 8.1 mg/dL (7.9-10.9); Carbon Dioxide 36.8 mmol/L (24-32.6)
[2019-05-25 06:45] LABS: Hemoglobin 8.9 gm/dL (13.5-18.0); Mean Cell Volume 100.8 fl (78-100); Mean Corpuscular Hemoglobin 34.5 pg (27-31); Mean Corpuscular Hgb Conc 34.2 g/dl (32-36); Mean Platelet Volume 9.6 fl (8-11.3); Platelet Count 140 K/mm3 (150-450); Red Blood Count 2.58 M/mm3 (4.7-6.0); Red Cell Distribution Width 15.5 % (11.5-14.0)
[2019-05-25 06:47] LABS: Total Cells Counted 100
[2019-05-25 06:57] LABS: Band 5 % (0-2.0); Lymphocyte 8 % (20-51); Monocyte 3 % (0-9); Neutrophil 84 % (42-75); Neutrophil # 21.8 K/mm3 (1.3-6.0); Platelet Estimate Normal (NORMAL); RBC Morphology Normal (NORMAL)
[2019-05-25] MEDS: CEFEPIME HCL 2 GM in DEXTROSE 5 % IN WATER 100 ML IV SCH ×6 (07:52→21:48)
[2019-05-25] MEDS: SACCHAROMYCES BOULARDII 250 MG CAPSULE PO SCH ×2 (09:55→21:47)
[2019-05-25] MEDS: MINERAL OIL/PETROLATUM,WHITE 454 APPL JAR TP SCH ×2 (09:56→21:46)
[2019-05-25] MEDS: POTASSIUM CHLORIDE 20 MEQ TABLET.SA PO SCH ×3 (09:57→17:46)
[2019-05-25] MEDS: THIAMINE HCL 100 MG/ML VIAL IM SCH (09:58)
[2019-05-25] MEDS: GABAPENTIN 300 MG CAPSULE PO SCH ×2 (09:58→21:47)
[2019-05-25] MEDS: NYSTATIN 15 APPL BTL TP SCH ×2 (09:58→21:46)
--- NOTE | 2019-05-25 10:06 | PN ---
Subjective - Date and Time Seen Date: 05/25/19 Time: 08:48 Subjective Narrative: Patient states he feels well today. He complains of feeling thirsty and due to the water restrictions. He also complains of pain at the soles of his feet bilaterally especially when he tries to walk. He denies shortness of breath. He feels his mentation is improved today. Objective - Review of Systems Generalized/Overall Review: Denies: Chills, Fever Respiratory: Denies: Shortness of Breath Cardiac: Denies: Chest Pain Abdominal: Denies: Abdominal Pain Musculoskeletal Complaints: Reports: Other - Pain on the soles of both feet Misc: All systems neg except as marked - Vitals Vitals: Last Vital Signs Temp 36.3 C 05/25/19 06:42 Pulse 62 05/25/19 06:42 Resp 20 05/25/19 06:42 BP 91/47 05/25/19 06:42 Pulse Ox 96 05/25/19 06:42 - Abnormal Lab Findings Abnormal Lab Findings: Abnormal Lab Results 05/24/19 05/24/19 05/24/19 Range/Units 13:05 17:25 17:25 WBC (4.0-10.5) K/mm3 RBC (4.7-6.0) M/mm3 Hgb (13.5-18.0) gm/dL Hct (42.0-52.0) % MCV (78-100) fl MCH (27-31) pg RDW (11.5-14.0) % Plt Count (150-450) K/mm3 Neutrophils % (Manual) (42-75) % Band Neuts % (Manual) (0-2.0) % Lymphocytes % (Manual) (20-51) % Neutrophils # (Manual) (1.3-6.0) K/mm3 pCO2 (35.0-48.0) mmHg pO2 63.0 L (83.0-108.0) mmHg HCO3 30.8 H (21.0-28.0) mmol/L Total CO2 32.0 H (19.0-24.0) mmol/L Base Excess 7.3 H (-2.0-3.0) mmol/L ABG pH 7.52 H (7.35-7.45) Sodium 128 L (132-142) mmol/L Plasma Sodium 129 L (130-142) mmol/L Potassium 3.3 L (3.4-4.6) mmol/L Chloride 89 L (97-106) mmol/L Carbon Dioxide 34.6 H (24-32.6) mmol/L Anion Gap (6.8-13.8) mmol/L Random Glucose 134 H (70-110) mg/dL Total Bilirubin 2.3 H (0.0-1.1) mg/dL AST 68 H (0-48) U/L Ammonia 37.0 H (11-35) mcmol/L Total Protein 6.1 L (6.2-8.2) gm/dL Albumin 2.0 L (3.4-5.0) gm/dl 05/24/19 05/25/19 05/25/19 Range/Units 22:35 06:05 06:05 WBC 26.0 H (4.0-10.5) K/mm3 RBC 2.58 L (4.7-6.0) M/mm3 Hgb 8.9 L (13.5-18.0) gm/dL Hct 26.0 L (42.0-52.0) % MCV 100.8 H (78-100) fl MCH 34.5 H (27-31) pg RDW 15.5 H (11.5-14.0) % Plt Count 140 L (150-450) K/mm3 Neutrophils % (Manual) 84 H (42-75) % Band Neuts % (Manual) 5 H (0-2.0) % Lymphocytes % (Manual) 8 L (20-51) % Neutrophils # (Manual) 21.8 H (1.3-6.0) K/mm3 pCO2 48.1 H (35.0-48.0) mmHg pO2 (83.0-108.0) mmHg HCO3 33.4 H (21.0-28.0) mmol/L Total CO2 34.8 H (19.0-24.0) mmol/L Base Excess 8.5 H (-2.0-3.0) mmol/L ABG pH 7.46 H (7.35-7.45) Sodium 128 L (132-142) mmol/L Plasma Sodium 128 L (130-142) mmol/L Potassium 3.0 L (3.4-4.6) mmol/L Chloride 90 L (97-106) mmol/L Carbon Dioxide 36.8 H (24-32.6) mmol/L Anion Gap 4.2 L (6.8-13.8) mmol/L Random Glucose 117 H (70-110) mg/dL Total Bilirubin 1.7 H (0.0-1.1) mg/dL AST 59 H (0-48) U/L Ammonia (11-35) mcmol/L Total Protein 6.0 L (6.2-8.2) gm/dL Albumin 1.9 L (3.4-5.0) gm/dl - Exam Constitutional: Present: Alert, Well developed, Well nourished, No distress, Morbidly obese. Absent: Lethargic, Somnolent ENT Exam: Present: hearing grossly normal Respiratory: Present: no accessory muscle use, crackles - Bilateral bases one quarter, wheezing - And expiratory wheeze throughout, expiration (prolonged) Cardiovascular/Chest: Present: normal peripheral pulses, regular rate, rhythm, no murmur - Heart rate, edema - 2+ bilateral lower extremity pitting edema up to the lower abdomen and. low back Abdomen: Present: Normal bowel sounds, soft - back, nontender, distended, hernia - Periumbilical Extremity: Present: lower extremity edema - 2+ pitting bilateral lower extremity edema up to the lower abdomen and low back Skin Exam: Present: warm/dry, other - Erythematous bilateral legs Neurologic: Present: alert, normal mood/affect Appearance: Present: appropriate appearance, appropriate insight Eye contact: Present: cooperative Thoughts: Present: normal thought pattern, normal mood /affect Assessment/Plan Plan Narrative: 64-year-old male with a past medical history of hypertension and alcohol abuse presents with complaints of weakness for the past 5 days. He had a fall today and was unable to get himself up. EMS was called. In the emergency department he was found to have hyponatremia with a sodium of 120, BNP of 365, albumin of 2.3. He was admitted for management of hyponatremia. It is unclear how long the sodium has been low. He continues to diurese well but has a large fluid burden. I believe his anasarca may be secondary to low albumin. The low albumin may potentially be from liver cirrhosis due to his history of alcohol abuse. Since admission he has lost about 21 kg of fluid weight. Sodium stable at 128 today. Yesterday he did not receive the full dose of Lasix and missed the afternoon dose and only received 40 mg in the evening. Today I will decrease his Lasix from 80 to 60 mg IV due to his blood pressure being in the low normal range. He also did not receive 1 dose of potassium yesterday due to increasing confusion. He received a dose of Librium yesterday morning and will follow-up worsening confusion throughout the rest the evening shift. I believe the confusion was secondary to metabolic encephalopathy. It was multifactorial in light of the hospital-acquired pneumonia and Librium administration. He has a history of heavy alcohol use and may have a component of cirrhosis that has not been diagnosed. He did not clear the Librium from his system until this morning. His mentation appears to be back to baseline. The cellulitis in his legs appears to be improving with decreased erythema bilaterally. I will continue cefepime and vancomycin for the right midlung hospital-acquired pneumonia. He continues to have a leukocytosis that is trended up from 22,000-26,000. He is afebrile. He is still requiring 3 L of oxygen via oxygen mask. Plan #1 I will continue with aggressive diuresis but will cut back on Lasix due to his blood pressure dropping. Stop Lasix 80 mg 3 times a day, and start Lasix 60 mg IV 3 times a day. #2 monitor sodium once daily. #3 fluid restrict is back to 1200 cc every 24 hours because his sodium had was dropping again over the weekend #4 strict I's and O's #5 Continue with home medications for comorbidities #6 replete potassium as needed #7 VTE prophylaxis with Lovenox 40 mg daily #8 start vancomycin 2 g every 12 hours and cefepime 2 g every 8 hours for treatment of right mid lung pneumonia, day 2 he. 2 g to 62 #9 discontinue Librium #10 wean off of oxygen as tolerated, goal keep O2 level greater than 90% - Problems/Diagnosis (1) Acute hyponatremia Problem: Acute (2) Hypertension Problem: Acute Qualifiers: Hypertension type: essential hypertension Qualified Code(s): I10 - Essential (primary) hypertension (3) Morbid obesity with BMI of 45.0-49.9, adult Problem: Acute (4) Volume overload Problem: Acute (5) Anasarca Problem: Acute (6) Hypoalbuminemia Problem: Acute (7) Bilateral leg and foot pain Problem: Acute (8) HAP (hospital-acquired pneumonia) Problem: Acute (9) Hypoxia Problem: Acute (10) Hypokalemia Problem: Acute (11) Acute metabolic encephalopathy Problem: Acute (12) Neutrophilic leukocytosis Problem: Acute
[2019-05-25] MEDS: FUROSEMIDE 10 MG/ML VIAL IV SCH ×3 (10:25→17:48)
[2019-05-25] MEDS: CARVEDILOL 12.5 MG TABLET PO SCH (10:25)
[2019-05-25] MEDS ORDERED: FUROSEMIDE 10 MG/ML VIAL IV ONE (10:25)
[2019-05-25] MEDS: ENOXAPARIN SODIUM 40 MG/0.4 ML SYRG SC SCH (17:45)
[2019-05-26] MEDS: ALBUTEROL SULFATE/IPRATROPIUM 3 ML NEBU IH SCH ×4 (00:03→18:03)
[2019-05-26] MEDS: VANCOMYCIN HCL 2 GM in DEXTROSE 5 % IN WATER 500 ML IV SCH ×2 (02:39)
[2019-05-26 06:43] LABS: Albumin * 1.9 gm/dl (3.4-5.0); Anion Gap 6.8 mmol/L (6.8-13.8); BUN/Creatinine Ratio 20.3 (9.0-21.6); Bilirubin, Total 0.9 mg/dL (0.0-1.1); Ca. Corrected For Albumin 9.7 mg/dL (8.4-10.2); Calcium * 8.3 mg/dL (7.9-10.9); Carbon Dioxide 36.6 mmol/L (24-32.6); Potassium 3.4 mmol/L (3.4-4.6); Total Protein 6.1 gm/dL (6.2-8.2)
[2019-05-26 06:45] LABS: Hematocrit 26.9 % (42.0-52.0); Hemoglobin 9.3 gm/dL (13.5-18.0); Mean Cell Volume 101.1 fl (78-100); Mean Corpuscular Hgb Conc 34.6 g/dl (32-36); Mean Platelet Volume 10.2 fl (8-11.3); Platelet Count 126 K/mm3 (150-450); Red Blood Count 2.66 M/mm3 (4.7-6.0); Red Cell Distribution Width 15.5 % (11.5-14.0); White Blood Count 13.9 K/mm3 (4.0-10.5)
[2019-05-26 06:46] LABS: Total Cells Counted 100
[2019-05-26 07:10] LABS: Band 1 % (0-2.0); Eosinophil 3 % (0-3); Lymphocyte 12 % (20-51); Monocyte 5 % (0-9); Neutrophil 79 % (42-75); Platelet Estimate Normal (NORMAL); RBC Morphology Normal (NORMAL)
[2019-05-26] MEDS: CEFEPIME HCL 2 GM in DEXTROSE 5 % IN WATER 100 ML IV SCH ×4 (08:04→14:24)
[2019-05-26] MEDS: MINERAL OIL/PETROLATUM,WHITE 454 APPL JAR TP SCH ×2 (08:08→20:08)
[2019-05-26] MEDS: SACCHAROMYCES BOULARDII 250 MG CAPSULE PO SCH ×2 (08:09→20:10)
[2019-05-26] MEDS: POTASSIUM CHLORIDE 20 MEQ TABLET.SA PO SCH ×3 (08:09→17:12)
[2019-05-26] MEDS: NYSTATIN 15 APPL BTL TP SCH ×2 (08:10→20:09)
[2019-05-26] MEDS: GABAPENTIN 300 MG CAPSULE PO SCH ×2 (08:11→20:15)
[2019-05-26] MEDS: FUROSEMIDE 10 MG/ML VIAL IV SCH ×2 (09:12→20:12)
[2019-05-26] MEDS ORDERED: guaiFENesin 100 MG/5 ML SYRUP PO PRN ×2 (09:13→11:45)
[2019-05-26] MEDS: THIAMINE HCL 100 MG/ML VIAL IM SCH (09:13)
--- NOTE | 2019-05-26 09:33 | PN ---
Subjective - Date and Time Seen Date: 05/26/19 Time: 08:47 Subjective Narrative: He states he feels better today. He complains of congestion in his chest and pain in the soles of both feet. Objective - Review of Systems Generalized/Overall Review: Denies: Chills, Fever Respiratory: Reports: Cough. Denies: Shortness of Breath Cardiac: Reports: Edema. Denies: Chest Pain Abdominal: Denies: Abdominal Pain Misc: All systems neg except as marked - Vitals Vitals: Last Vital Signs Temp 36.5 C 05/26/19 08:00 Pulse 81 05/26/19 09:12 Resp 14 05/26/19 08:00 BP 117/52 05/26/19 09:12 Pulse Ox 93 05/26/19 08:00 - Abnormal Lab Findings Abnormal Lab Findings: Abnormal Lab Results 05/26/19 05/26/19 Range/Units 06:20 06:20 WBC 13.9 H D (4.0-10.5) K/mm3 RBC 2.66 L (4.7-6.0) M/mm3 Hgb 9.3 L (13.5-18.0) gm/dL Hct 26.9 L (42.0-52.0) % MCV 101.1 H (78-100) fl MCH 35.0 H (27-31) pg RDW 15.5 H (11.5-14.0) % Plt Count 126 L (150-450) K/mm3 Neutrophils % (Manual) 79 H (42-75) % Lymphocytes % (Manual) 12 L (20-51) % Neutrophils # (Manual) 11.0 H (1.3-6.0) K/mm3 Sodium 131 L (132-142) mmol/L Chloride 91 L (97-106) mmol/L Carbon Dioxide 36.6 H (24-32.6) mmol/L Est GFR (Non-Af Amer) 134 H (60-130) mL/min AST 88 H (0-48) U/L Total Protein 6.1 L (6.2-8.2) gm/dL Albumin 1.9 L (3.4-5.0) gm/dl - Exam Constitutional: Present: Alert, Cooperative, Well developed, Well nourished, Morbidly obese ENT Exam: Present: hearing grossly normal Neck: Present: non-tender, trachea midline. Absent: lymphadenopathy (R), lymphadenopathy (L) Respiratory: Present: no respiratory distress, no accessory muscle use, wheezing - Expiratory wheezes throughout all lung hart Cardiovascular/Chest: Present: normal peripheral pulses, regular rate, rhythm, no murmur, edema - 2+ bilateral pitting and lower extremities up to lower abdomen and low back but improving Abdomen: Present: Normal bowel sounds, soft, nontender, obese Extremity: Present: lower extremity edema - 2+ bilateral pitting and lower extremities up to lower abdomen and low back but improving, leg pain Skin Exam: Present: warm/dry - Mild erythema, improving Neurologic: Present: alert, normal mood/affect Appearance: Present: appropriate appearance, appropriate insight Eye contact: Present: cooperative Thoughts: Present: normal thought pattern, normal mood /affect Assessment/Plan Plan Narrative: 64-year-old male with a past medical history of hypertension and alcohol abuse presents with complaints of weakness for the past 5 days. He had a fall today and was unable to get himself up. EMS was called. In the emergency department he was found to have hyponatremia with a sodium of 120, BNP of 365, albumin of 2.3. He was admitted for management of hyponatremia. It is unclear how long the sodium has been low. He continues to diurese well but has a large fluid burden. I believe his anasarca may be secondary to low albumin. The low albumin may potentially be from liver cirrhosis due to his history of alcohol abuse. Since admission he has lost about 22 kg of fluid weight. Sodium improved to 131 today. Today I will decrease his Lasix from 60 mg IV 3 times a day to 60 mg IV twice a day. Due to his blood pressure being in the low normal range. His sodium has improved to 131 so I can be less aggressive with the Lasix. The cellulitis in his legs continues to improve with decreased erythema bilaterally. I will continue cefepime and vancomycin for the right midlung hospital-acquired pneumonia. He is afebrile and leukocytosis has improved from 26,000 0 to 13,000. He states he feels better. Plan #1 I will continue with Lasix aggressive diuresis and will cut back on Lasix due to his blood pressure dropping. Stop Lasix 60 mg 3 times a day, and start Lasix 60 mg IV 2 times a day. Continue with Gayle and inspiratory spirometer and breathing treatments. I have also started Robitussin for his cough #2 monitor sodium once daily. #3 Continue to fluid restrict at 1200 cc every 24 hours #4 strict I's and O's #5 Continue with home medications for comorbidities #6 replete potassium as needed #7 VTE prophylaxis with Lovenox 40 mg daily #8 start vancomycin 2 g every 12 hours and cefepime 2 g every 8 hours for treatment of right mid lung pneumonia, day 3 #9 Goal O2 level greater than 90% #10 Lovenox for DVT prophylaxis - Problems/Diagnosis (1) HAP (hospital-acquired pneumonia) Problem: Acute (2) Acute hyponatremia Problem: Acute (3) Hypertension Problem: Acute Qualifiers: Hypertension type: essential hypertension Qualified Code(s): I10 - Essential (primary) hypertension (4) Morbid obesity with BMI of 45.0-49.9, adult Problem: Acute (5) Volume overload Problem: Acute (6) Anasarca Problem: Acute (7) Hypoalbuminemia Problem: Acute (8) Bilateral leg and foot pain Problem: Acute (9) Hypoxia Problem: Acute (10) Hypokalemia Problem: Acute (11) Acute metabolic encephalopathy Problem: Acute (12) Neutrophilic leukocytosis Problem: Acute (13) Cellulitis Problem: Acute Qualifiers: Site of cellulitis: extremity Site of cellulitis of extremity: lower extremity
[2019-05-26] MEDS ORDERED: VANCOMYCIN HCL LEVEL XX ONE (14:30)
[2019-05-26] MEDS: ENOXAPARIN SODIUM 40 MG/0.4 ML SYRG SC SCH (17:11)
[2019-05-26] MEDS: VANCOMYCIN HCL 1 GM, VANCOMYCIN HCL 750 MG in DEXTROSE 5 % IN WATER 500 ML IV SCH ×3 (20:16)
[2019-05-27] MEDS: ALBUTEROL SULFATE/IPRATROPIUM 3 ML NEBU IH SCH ×3 (00:17→13:35)
[2019-05-27] MEDS: CEFEPIME HCL 2 GM in DEXTROSE 5 % IN WATER 100 ML IV SCH ×6 (00:39→14:46)
[2019-05-27 06:30] LABS: Hematocrit 28.8 % (42.0-52.0); Hemoglobin 9.9 gm/dL (13.5-18.0); Mean Cell Volume 101.4 fl (78-100); Mean Corpuscular Hemoglobin 34.9 pg (27-31); Mean Corpuscular Hgb Conc 34.4 g/dl (32-36); Mean Platelet Volume 9.6 fl (8-11.3); Platelet Count 140 K/mm3 (150-450); Red Blood Count 2.84 M/mm3 (4.7-6.0); Red Cell Distribution Width 15.6 % (11.5-14.0); White Blood Count 8.2 K/mm3 (4.0-10.5)
[2019-05-27 06:33] LABS: Total Cells Counted 100
[2019-05-27 06:41] LABS: Anion Gap 5.9 mmol/L (6.8-13.8); BUN/Creatinine Ratio 16.7 (9.0-21.6); Ca. Corrected For Albumin 9.8 mg/dL (8.4-10.2); Calcium * 8.5 mg/dL (7.9-10.9); Carbon Dioxide 36.9 mmol/L (24-32.6); Potassium 3.8 mmol/L (3.4-4.6); Total Protein 6.6 gm/dL (6.2-8.2)
[2019-05-27 06:44] LABS: Atypical (Reactive) Lymph 3 % (0-2); Lymphocyte 21 % (20-51); Monocyte 6 % (0-9); Neutrophil 70 % (42-75); Neutrophil # 5.7 K/mm3 (1.3-6.0); Platelet Estimate Normal (NORMAL); RBC Morphology Normal (NORMAL)
[2019-05-27] MEDS: GABAPENTIN 300 MG CAPSULE PO SCH (08:45)
[2019-05-27] MEDS: POTASSIUM CHLORIDE 20 MEQ TABLET.SA PO SCH ×2 (08:46)
[2019-05-27] MEDS: SACCHAROMYCES BOULARDII 250 MG CAPSULE PO SCH (08:46)
[2019-05-27] MEDS: FUROSEMIDE 10 MG/ML VIAL IV SCH (08:46)
[2019-05-27] MEDS: THIAMINE HCL 100 MG/ML VIAL IM SCH (08:47)
[2019-05-27] MEDS: VANCOMYCIN HCL 1 GM, VANCOMYCIN HCL 750 MG in DEXTROSE 5 % IN WATER 500 ML IV SCH ×3 (10:09)
[2019-05-27] MEDS: MINERAL OIL/PETROLATUM,WHITE 454 APPL JAR TP SCH (10:11)
[2019-05-27] MEDS: NYSTATIN 15 APPL BTL TP SCH (10:11)
[2019-05-27] MEDS ORDERED: LEVOFLOXACIN 750 MG TABLET PO SCH (11:16)
[2019-05-27] MEDS ORDERED: CLINDAMYCIN HCL 150 MG CAPSULE PO SCH (11:17)
--- NOTE | 2019-05-27 12:04 | DS ---
(1) HAP (hospital-acquired pneumonia) Problem: Acute (2) Acute hyponatremia Problem: Resolved (3) Hypertension Problem: Acute Qualifiers: Hypertension type: essential hypertension Qualified Code(s): I10 - E ssential (primary) hypertension (4) Morbid obesity with BMI of 45.0-49.9, adult Problem: Acute (5) Volume overload Problem: Acute (6) Anasarca Problem: Acute (7) Hypoalbuminemia Problem: Acute (8) Bilateral leg and foot pain Problem: Acute (9) Hypoxia Problem: Acute (10) Hypokalemia Problem: Resolved (11) Acute metabolic encephalopathy Problem: Resolved (12) Neutrophilic leukocytosis Problem: Acute (13) Cellulitis Problem: Acute Qualifiers: Site of cellulitis: extremity Site of cellulitis of extremity: lower extremity Hospital Course: 64-year-old male with a past medical history of hypertension and alcohol abuse presents with complaints of weakness for the past 5 days. He had a fall today and was unable to get himself up. EMS was called. In the emergency department he was found to have hyponatremia with a sodium of 120, BNP of 365, albumin of 2.3. He was admitted for management of hyponatremia. It is unclear how long the sodium has been low. He was found to have hypervolemic hyponatremia with anasarca. The patient was diuresed aggressively with IV Lasix and he lost approximately 23 kg of fluid weight. With the aggressive diuresis his sodium on discharge is 132. After a few days of hospitalization the hospitalization he was developed hypoxia and required oxygen supplementation. Chest x-ray was positive for a right midlung pneumonia with small pleural effusions. He was started on cefepime and vancomycin for healthcare associated pneumonia. He had developed leukocytosis of up to 26,000. This resolved with the antibiotics. He was also found to have celluliti of both lower extremities s and this resolved with IV antibiotics as well. He will be sent home on levofloxacin 750 mg daily for 3 more days and clindamycin 300 mg every 8 hours for 3.5 more days. Potassium was repleted throughout his hospitalization. During his hospitalization he developed an ep isode of confusion that was secondary to being given dose of Librium for anxiety. This confusion resolved after 24 hours and no more Librium was given to the patient. Due to his history of alcohol abuse he may have an element decreased clearance of medication such as Librium. I believe the Librium collected in his system and was clearing adequately causing him to be confused. Patient should follow-up with his primary care physician within 1 week of discharge. He should have repeat chemistry done check his sodium and potassium. Procedures Performed: none Results and Findings: Pending Mircobiology Results 05/24/19 09:50 Blood Blood Culture - Preliminary NO GROWTH AFTER 48 HOURS 05/24/19 09:21 Blood Blood Culture - Preliminary NO GROWTH AFTER 48 HOURS Lab Pending Results 05/18/19 12:06: WBC 8.6, RBC 3.13 L, Hgb 10.9 L, Hct 30.3 L, MCV 96.8, MCH 34.8 H, MCHC 36.0, RDW 13.6, Plt Count 190, MPV 9.4, Immature Gran % (Auto) 0.50 H, Immature Gran # (Auto) 0.04 H, Neutrophils % 74.2, Lymphocytes % 12.4 L, Monocytes % 11.3 H, Eosinophils % 1.2, Basophils % 0.4, Nucleated RBC % 0.0, Neutrophils # 6.4 H, Lymphocytes # 1.06 L, Monocytes # 1.0, Eosinophils # 0.1, Absolute Basophils 0.0 05/18/19 12:06: Sodium 120 L, Plasma Sodium 120 L, Potassium 3.5, Chloride 84 L, Carbon Dioxide 32.3, Anion Gap 7.2, BUN 7, Creatinine 0.64, Est GFR (Non-Af Amer) 134 H D, BUN/Creatinine Ratio 10.9, Random Glucose 102, Calcium 8.4, Calcium Adj for Albumin 9.4, Total Bilirubin 2.0 H, AST 75 H, ALT 31, Alkaline Phosphatase 121, Troponin I Less than 0.017, B-Natriuretic Peptide 365 H, Total Protein 6.5, Albumin 2.3 L 05/18/19 15:55: Sodium 118 L* 05/18/19 21:55: Sodium 123 L, Plasma Sodium 123 L, Potassium 3.6, Chloride 84 L, Carbon Dioxide 33.9 H, Anion Gap 8.7, BUN 7, Creatinine 0.65, Est GFR (Non-Af Amer) 131 H, BUN/Creatinine Ratio 10.8, Random Glucose 105, Calcium 8.3, Calcium Adj for Albumin 9.3, Total Bilirubin 2.1 H, AST 79 H, ALT 34, Alkaline Phosphatase 114, Total Protein 6.4, Albumin 2.4 L 05/18/19 21:55: Serum Osmolality 249 L 05/19/19 00:05: Ur Random Sodium 42 05/19/19 00:05: Urine Osmolality 198 05/19/19 06:44: WBC 7.7, RBC 2.77 L, Hgb 9.7 L, Hct 26.8 L, MCV 96.8, MCH 35.0 H, MCHC 36.2 H, RDW 13.8, Plt Count 153, MPV 9.7, Immature Gran % (Auto) 0.50 H, Immature Gran # (Auto) 0.04 H, Neutrophils % 76.6 H, Lymphocytes % 9.5 L, Monocytes % 11.9 H, Eosinophils % 1.2, Basophils % 0.3, Nucleated RBC % 0.0, Neutrophils # 5.9, Lymphocytes # 0.73 L, Monocytes # 0.9, Eosinophils # 0.1, Absolute Basophils 0.0 05/19/19 06:44: Sodium 122 L, Plasma Sodium 122 L, Potassium 3.3 L, Chloride 84 L, Carbon Dioxide 32.0, Anion Gap 9.3, BUN 7, Creatinine 0.62, Est GFR (Non-Af Amer) 139 H, BUN/Creatinine Ratio 11.3, Random Glucose 98, Calcium 8.0, Calcium Adj for Albumin 9.1, Total Bilirubin 2.1 H, AST 69 H, ALT 28, Alkaline Phosphatase 98, Total Protein 6.0 L, Albumin 2.2 L 05/19/19 12:11: Sodium 123 L, Plasma Sodium 123 L, Potassium 3.4, Chloride 85 L, Carbon Dioxide 31.0, Anion Gap 10.4, BUN 7, Creatinine 0.66, Est GFR (Non-Af Amer) 129, BUN/Creatinine Ratio 10.6, Random Glucose 106, Calcium 8.1, Calcium Adj for Albumin 9.2, Total Bilirubin 1.9 H, AST 72 H, ALT 28, Alkaline Phosp hatase 102, Total Protein 6.3, Albumin 2.2 L 05/19/19 16:05: Sodium 123 L 05/19/19 21:05: Sodium 123 L 05/20/19 06:00: WBC 6.7, RBC 2.78 L, Hgb 9.6 L, Hct 26.9 L, MCV 96.8, MCH 34.5 H, MCHC 35.7, RDW 14.0, Plt Count 130 L, MPV 9.0, Immature Gran % (Auto) 0.40, Immature Gran # (Auto) 0.03, Neutrophils % 67.4, Lymphocytes % 11.4 L, Monocytes % 18.7 H, Eosinophils % 1.8, Basophils % 0.3, Nucleated RBC % 0.0, Neutrophils # 4.5, Lymphocytes # 0.76 L, Monocytes # 1.3 H, Eosinophils # 0.1, Absolute Basophils 0.0 05/20/19 06:15: Sodium 125 L, Plasma Sodium 125 L, Potassium 3.3 L, Chloride 85 L, Carbon Dioxide 36.7 H, Anion Gap 6.6 L, BUN 7, Creatinine 0.64, Est GFR (Non- Af Amer) 134 H, BUN/Creatinine Ratio 10.9, Random Glucose 102, Calcium 7.8 L, Calcium Adj for Albumin 8.9, Total Bilirubin 1.5 H, AST 73 H, ALT 28, Alkaline Phosphatase 101, Total Protein 6.3, Albumin 2.2 L 05/20/19 16:30: Sodium 126 L, Plasma Sodium 126 L, Potassium 3.0 L, Chloride 86 L, Carbon Dioxide 35.8 H, Anion Gap 7.2, BUN 8, Creatinine 0.74, Est GFR (Non-Af Amer) 113, BUN/Creatinine Ratio 10.8, Random Glucose 105, Calcium 8.0, Calcium Adj for Albumin 9.1, Total Bilirubin 1.1, AST 76 H, ALT 29, Alkaline Phosphatase 108, Total Protein 6.3, Albumin 2.2 L 05/21/19 06:00: WBC 7.2, RBC 2.91 L, Hgb 10.1 L, Hct 28.7 L, MCV 98.6, MCH 34.7 H, MCHC 35.2, RDW 14.4 H, Plt Count 131 L, MPV 9.3, Immature Gran % (Auto) 0.40, Immature Gran # (Auto) 0.03, Neutrophils % 63.2, Lymphocytes % 17.6 L, Monocytes % 15.5 H, Eosinophils % 3.0, Basophils % 0.3, Nucleated RBC % 0.0, Neutrophils # 4.6, Lymphocytes # 1.27 L, Monocytes # 1.1 H, Eosinophils # 0.2, Absolute Basophils 0.0 05/21/19 06:00: Sodium 124 L, Plasma Sodium 124 L, Potassium 3.5, Chloride 86 L, Carbon Dioxide 35.4 H, Anion Gap 6.1 L, BUN 7, Creatinine 0.64, Est GFR (Non-Af Amer) 134 H, BUN/Creatinine Ratio 10.9, Random Glucose 97, Calcium 8.1, Calcium Adj for Albumin 9.2, Total Bilirubin 1.3 H, AST 82 H, ALT 31, Alkaline Phosphatase 102, Total Protein 6.4, Albumin 2.2 L 05/22/19 06:50: WBC 8.2, RBC 2.85 L, Hgb 10.0 L, Hct 28.4 L, MCV 99.6, MCH 35.1 H, MCHC 35.2, RDW 14.6 H, Plt Count 122 L, MPV 8.9, Immature Gran % (Auto) 0.20, Immature Gran # (Auto) 0.02, Neutrophils % 58.0, Lymphocytes % 20.4, Monocytes % 16.5 H, Eosinophils % 4.2 H, Basophils % 0.7, Nucleated RBC % 0.0, Neutrophils # 4.8, Lymphocytes # 1.67, Monocytes # 1.4 H, Eosinophils # 0.3, Absolute Basophils 0.1 05/22/19 06:50: Sodium 127 L, Plasma Sodium 127 L, Potassium 3.1 L, Chloride 87 L, Carbon Dioxide 38.9 H, Anion Gap 4.2 L, BUN 7, Creatinine 0.71, Est GFR (Non- Af Amer) 119, BUN/Creatinine Ratio 9.9, Random Glucose 88, Calcium 8.2, Calcium Adj for Albumin 9.2, Total Bilirubin 1.5 H, AST 73 H, ALT 29, Alkaline Phosphatase 104, Total Protein 6.5, Albumin 2.3 L 05/23/19 06:15: Sodium 127 L, Plasma Sodium 127 L, Potassium 3.3 L, Chloride 87 L, Carbon Dioxide 36.8 H, Anion Gap 6.5 L, BUN 8, Creatinine 0.70, Est GFR (Non- Af Amer) 121, BUN/Creatinine Ratio 11.4, Random Glucose 87, Calcium 8.4, Calcium Adj for Albumin 9.4, Total Bilirubin 2.1 H, AST 73 H, ALT 28, Alkaline Phosphatase 106, Total Protein 6.8, Albumin 2.4 L 05/23/19 06:15: Magnesium 1.6 05/24/19 06:24: WBC 22.1 H D, RBC 2.78 L, Hgb 9.9 L, Hct 27.4 L, MCV 98.6, MCH 35.6 H, MCHC 36.1 H, RDW 15.0 H, Plt Count 138 L, MPV 9.6, Neutrophils % (Manual) 87 H, Lymphocytes % (Manual) 7 L, Monocytes % (Manual) 6, Neutrophils # (Manual) 19.2 H, Lymphocytes # (Manual) 1.5, Monocytes # (Manual) 1.3 H, Platelet Estimate Normal, RBC Morphology Normal 05/24/19 06:24: Sodium 128 L, Plasma Sodium 128 L, Potassium 3.2 L, Chloride 89 L, Carbon Dioxide 34.1 H, Anion Gap 8.1, BUN 10, Creatinine 0.69, Est GFR (Non- Af Amer) 123, BUN/Creatinine Ratio 14.5, Random Glucose 109, Calcium 8.3, Calcium Adj for Albumin 9.5, Total Bilirubin 2.2 H, AST 67 H, ALT 24, Alkaline Phosphatase 99, Total Protein 6.3, Albumin 2.1 L 05/24/19 09:48: Urine Color Yellow, Urine Appearance Slightly cloudy, Urine pH 7.5, Ur Specific Amelia 1.010, Urine Protein Negative, Urine Glucose (UA) Negative, Urine Ketones Negative, Urine Blood Negative, Urine Nitrate Negative, Urine Bilirubin Negative, Urine Urobilinogen Normal, Ur Leukocyte Esterase Negative, Urine RBC None seen, Urine WBC 0-5, Ur Epithelial Cells 0-5, Urine Bacteria None seen, Urine Culture Comments No culture indicated 05/24/19 13:05: pCO2 39.0, pO2 63.0 L, HCO3 30.8 H, Total CO2 32.0 H, Base Excess 7.3 H, ABG pH 7.52 H, ABG O2 Sat (Measured) 94.1 05/24/19 17:25: Sodium 128 L, Plasma Sodium 129 L, Potassium 3.3 L, Chloride 89 L, Carbon Dioxide 34.6 H, Anion Gap 7.7, BUN 11, Creatinine 0.76, Est GFR (Non- Af Amer) 110, BUN/Creatinine Ratio 14.5, Random Glucose 134 H, Calcium 8.2, Calcium Adj for Albumin 9.5, Total Bilirubin 2.3 H, AST 68 H, ALT 24, Alkaline Phosphatase 95, Total Protein 6.1 L, Albumin 2.0 L 05/24/19 17:25: Ammonia 37.0 H 05/24/19 22:35: pCO2 48.1 H, pO2 84.5, HCO3 33.4 H, Total CO2 34.8 H, Base Excess 8.5 H, ABG pH 7.46 H, ABG O2 Sat (Measured) 96.7 05/25/19 06:05: WBC 26.0 H, RBC 2.58 L, Hgb 8.9 L, Hct 26.0 L, MCV 100.8 H, MCH 34.5 H, MCHC 34.2, RDW 15.5 H, Plt Count 140 L, MPV 9.6, Neutrophils % (Manual) 84 H, Band Neuts % (Manual) 5 H, Lymphocytes % (Manual) 8 L, Monocytes % (Manual) 3, Neutrophils # (Manual) 21.8 H, Lymphocytes # (Manual) 2.1, Monocytes # (Manual) 0.8, Platelet Estimate Normal, RBC Morphology Normal 05/25/19 06:05: Sodium 128 L, Plasma Sodium 128 L, Potassium 3.0 L, Chloride 90 L, Carbon Dioxide 36.8 H, Anion Gap 4.2 L, BUN 14, Creatinine 0.70, Est GFR (Non-Af Amer) 121, BUN/Creatinine Ratio 20.0, Random Glucose 117 H, Calcium 8.1, Calcium Adj for Albumin 9.5, Total Bilirubin 1.7 H, AST 59 H, ALT 26, Alkaline Phosphatase 88, Total Protein 6.0 L, Albumin 1.9 L 05/26/19 06:20: WBC 13.9 H D, RBC 2.66 L, Hgb 9.3 L, Hct 26.9 L, MCV 101.1 H, MCH 35.0 H, MCHC 34.6, RDW 15.5 H, Plt Count 126 L, MPV 10.2, Neutrophils % (Manual) 79 H, Band Neuts % (Manual) 1, Lymphocytes % (Manual) 12 L, Monocytes % (Manual) 5, Eosinophils % (Manual) 3, Neutrophils # (Manual) 11.0 H, Lymphocytes # (Manual) 1.7, Monocytes # (Manual) 0.7, Eosinophils # (Manual) 0.4, Platelet Estimate Normal, RBC Morphology Normal 05/26/19 06:20: Sodium 131 L, Plasma Sodium 131, Potassium 3.4, Chloride 91 L, Carbon Dioxide 36.6 H, Anion Gap 6.8, BUN 13, Creatinine 0.64, Est GFR (Non-Af Amer) 134 H, BUN/Creatinine Ratio 20.3, Random Glucose 100, Calcium 8.3, Calcium Adj for Albumin 9.7, Total Bilirubin 0.9, AST 88 H, ALT 33, Alkaline Phosphatase 108, Total Protein 6.1 L, Albumin 1.9 L 05/26/19 14:45: Vancomycin Trough 21.3 H 05/27/19 06:24: WBC 8.2 D, RBC 2.84 L, Hgb 9.9 L, Hct 28.8 L, MCV 101.4 H, MCH 34.9 H, MCHC 34.4, RDW 15.6 H, Plt Count 140 L, MPV 9.6, Neutrophils % (Manual) 70, Lymphocytes % (Manual) 21, Monocytes % (Manual) 6, Neutrophils # (Manual) 5.7, Lymphocytes # (Manual) 1.7, Monocytes # (Manual) 0.5, Atypic/Reactive Lymphs 3 H, Platelet Estimate Normal, RBC Morphology Normal 05/27/19 06:24: Sodium 132, Plasma Sodium 132, Potassium 3.8, Chloride 93 L, Carbon Dioxide 36.9 H, Anion Gap 5.9 L, BUN 11, Creatinine 0.66, Est GFR (Non-Af Amer) 129, BUN/Creatinine Ratio 16.7, Random Glucose 94, Calcium 8.5, Calcium Adj for Albumin 9.8, Total Bilirubin 1.0, AST 103 H, ALT 42, Alkaline Phosphatase 115, Total Protein 6.6, Albumin 2.0 L Discharge Location: Home Disposition: Home self-care Condition: Stable Discharge Activity: Activity as tolerated Discharge Diet: General/regular food Referrals: Katheryn Bell MD [Primary Care Provider] - Prescriptions (Any new or edited meds): Clindamycin HCl [Cleocin] 300 mg PO Q8H #11 cap Transmission Status: Received by [facility] [id number] Levofloxacin [Levaquin] 750 mg PO DAILY@1100 #3 tab Transmission Status: Received by [facility] [id number] Complete Home Medications List: Complete Home Medication List: Carvedilol [Coreg] 12.5 mg PO BID 05/18/19 Furosemide [Lasix] 80 mg PO BID 05/18/19 Potassium Chloride [Klor-Con M20] 20 meq PO DAILY 05/18/19 Clindamycin HCl [Cleocin] 300 mg PO Q8H #11 cap 05/27/19 Levofloxacin [Levaquin] 750 mg PO DAILY@1100 #3 tab 05/27/19
[2019-05-27 14:59] VITALS: BP 147/71
== END 2019-05-27 17:05 | disposition home or self-care (01) | DRG 640 ==
LOC: ER 11:17 → MS 13:43
PROVIDERS: ADMIT Internal Medicine; ATTEND Internal Medicine
DX: F10.10 Alcohol abuse, uncomplicated; F17.210 Nicotine dependence, cigarettes, uncomplicated; E87.6 Hypokalemia; R09.02 Hypoxemia; J18.9 Pneumonia, unspecified organism; E88.09 Other disorders of plasma-protein metabolism, not elsewhere classified; E66.01 Morbid (severe) obesity due to excess calories; D72.828 Other elevated white blood cell count; R60.1 Generalized edema; L03.115 Cellulitis of right lower limb; R06.00 Dyspnea, unspecified; Z68.42 Body mass index [BMI] 45.0-49.9, adult; Z23 Encounter for immunization; E87.70 Fluid overload, unspecified; Y95 Nosocomial condition; G93.41 Metabolic encephalopathy; I10 Essential (primary) hypertension; E87.1 Hypo-osmolality and hyponatremia; L03.116 Cellulitis of left lower limb
CPT/HCPCS: 36415; 36600; 71010; 71020; 71045; 71046; 80053; 80202; 81001; 82140; 82803; 83519; 83735; 83880; 83930; 83935; 84295; 84300; 84484; 85007; 85025; 87040; 90686; 93005; 94640; 94664; 99285